=== PATIENT | female | born 1980 | race Caucasian/White ===

== ENCOUNTER 2017-11-17 13:21 | Emergency (ER) | payer BC ==
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
== END 2017-11-17 14:51 | disposition home or self-care (01) ==
LOC: ERS 13:21
DX: S06.0X0A Concussion without loss of consciousness, initial encounter (principal); F10.239 Alcohol dependence with withdrawal, unspecified; I10 Essential (primary) hypertension; F41.9 Anxiety disorder, unspecified; F32.9 Major depressive disorder, single episode, unspecified; F43.10 Post-traumatic stress disorder, unspecified; Z79.899 Other long term (current) drug therapy; V49.9XXA Car occupant (driver) (passenger) injured in unspecified traffic accident, initial encounter
CPT/HCPCS: 70450

== ENCOUNTER 2017-11-17 22:21 | Emergency (ER) | payer BC ==
[2017-11-17] MEDS ORDERED: Lorazepam 2 MG/ML VIAL ONE (22:38)
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
[2017-11-17 23:13] LABS: Bicarbonate (HCO3v) 19.9 mmol/L (1.0-85.0); CO2 Tension (PvCO2) 28.9 mmHg (41.0-51.0); Calcium, Ionized 1.01 mmol/L (1.12-1.32); Hemoglobin - Calc 13.1 g/dL (12.0-18.0); T. Carbon Dioxide 20.8 mmol/L (1.0-85.0); pH (Venous) 7.445 (7.35-7.45); vO2 Saturation-calc 95.9 % (94-98)
[2017-11-17] MEDS ORDERED: Magnesium 2 GM/NS 0.9% 100 ML 2 GM in Premix Bag 1 BAG IVPB SCH (23:15)
[2017-11-17] MEDS ORDERED: Multivitamins, Adult 10 ML, Thiamine HCl 100 MG, Folic Acid 1 MG in Dextrose 5 %-0.45 %... IV SCH (23:15)
[2017-11-17 23:18] LABS: ALT (SGPT) 32 U/L (8-55); AST (SGOT) 47 U/L (5-34); Albumin 4.5 g/dL (3.5-5.0); Alcohol 137 mg/dL (Less than 10); Alkaline Phosphatase 76 U/L (40-150); Anion Gap 21 mmol/L (10-20); BUN (Urea Nitrogen) 18 mg/dL (7.0-18.7); Bilirubin, Total 1.2 mg/dL (0.2-1.2); CK (CPK) 109 U/L (29-168); Calc. Creatinine Clearance 0 mL/min (70-130); Calcium 8.7 mg/dL (7.8-10.44); Carbon Dioxide 17 mmol/L (22-29); Chloride 100 mmol/L (98-107); Estimated GFR-MDRD 78; Globulin 2.8 g/dL (2.4-3.5); Glucose 78 mg/dL (70-105); Protein, Total 7.3 g/dL (6.0-8.3); Sodium 135 mmol/L (136-145)
[2017-11-17 23:22] LABS: CKMB 1.6 ng/mL (0-6.6); Troponin I Less than 0.010 ng/mL (< 0.028)
[2017-11-17 23:23] LABS: Potassium 2.9 mmol/L (3.5-5.1)
[2017-11-18 01:10] LABS: Bilirubin Negative (Negative); Blood, Urine Small (Negative); Glucose, Urine (Dipstick) Negative (Negative); Leukocyte Small (Negative); Nitrite Negative (Negative); Protein, Urine (Dipstick) 100 mg/dL (Neg-Trace); Urobilinogen 0.2 mg/dL (0.2-1.0)
[2017-11-18 01:13] LABS: Clarity Cloudy (Clear); Specific Gravity, Urine 1.028 (1.002-1.036)
[2017-11-18 01:14] LABS: Bacteria/HPF Rare-Few HPF (None Seen); Crystals/HPF None Seen HPF (Negative); Hyaline Casts/LPF NONE SEEN LPF (0-3 Hyaline); RBC/HPF 0-3 HPF (0-3); Renal Epithelial None Seen HPF (0-3); Transitional Epithelial NONE SEEN HPF (0-3); Yeast-All Forms None Seen HPF (None Seen)
[2017-11-18 01:15] LABS: Other Casts/LPF None Seen LPF (0-3 Hyaline); Other Microscopic Description Less than 2 mL rec'd; Pregnancy Test - Urine (BHCG) Negative (Negative); Pregu Control Background? CLEAR/WHITE (CLR/WHITE); Pregu Control Bar Appear? YES (CONTROL BAR); Specific Gravity 1.028 (1.002-1.036)
[2017-11-18 01:21] LABS: Amphetamine Detected (NotDetected); Barbiturates Screen Not Detected (NotDetected); Benzodiazepine Screen Not Detected (NotDetected); Cocaine Metabolite Screen Detected (NotDetected); Medtox Control Line Valid? VALID (VALID); Medtox Reader # READER 4; Methadone Not Detected (NotDetected); Methamphetamine Not Detected (NotDetected); Opiate Screen Not Detected (NotDetected); Oxycodone Screen Not Detected (NotDetected); Phencyclidine (PCP) Not Detected (NotDetected); THC/Cannabinoid Screen Not Detected (NotDetected); Tricyclic Screen Not Detected (NotDetected)
[2017-11-18] MEDS ORDERED: Lorazepam 2 MG/ML VIAL ONE (07:39)
== END 2017-11-18 09:35 | disposition home or self-care (01) ==
LOC: EEVIPCON 22:21 → ERS 22:21
DX: F10.10 Alcohol abuse, uncomplicated (principal); F41.9 Anxiety disorder, unspecified; F32.9 Major depressive disorder, single episode, unspecified; F43.10 Post-traumatic stress disorder, unspecified; I10 Essential (primary) hypertension; Z79.899 Other long term (current) drug therapy
CPT/HCPCS: 36415; 70450; 71045; 80053; 80306; 80307; 81003; 81015; 81025; 82140; 82330; 82553; 82803; 83735; 83930; 84443; 84484; 85014; 93005; 96361; 96365; 96375; 96376; J2060; J3411; J3475; J7042

== ENCOUNTER 2018-01-08 11:21 | Emergency (ER) | payer BC ==
[2018-01-08] MEDS ORDERED: Ondansetron HCl/PF 4 MG/2 ML Vial ONE ×2 (12:16→12:39)
[2018-01-08 12:49] LABS: #Basophils 0.1 thou/uL (0.0-0.2); #Lymphocytes 1.6 thou/uL (1.20-3.40); #Monocytes 0.4 thou/uL (0.11-0.59); %Basophils 1.6 % (0.0-1.0); %Eosinophils 0.7 % (0.0-10.0); %Lymphocytes 26.3 % (21.0-51.0); %Monocytes 6.5 % (0.0-10.0); %Neutrophils 64.9 % (42.0-75.0); Hemoglobin 15.1 g/dL (12.0-16.0); Mean Corpuscular HGB CONC 34.7 g/dL (32.0-36.0); Mean Corpuscular Hemoglobin 34.4 pg (27.0-31.0); Mean Corpuscular Volume 99.4 fL (78.0-98.0); Mean Platelet Volume 6.9 fL (7.4-10.4); Platelet Count 202 thou/uL (130-400); RBC Distribution Width 12.8 % (11.5-14.5); Red Blood Cell (RBC) Count 4.37 mill/uL (4.20-5.40); White Blood Cell (WBC) Count 6.2 thou/uL (4.8-10.8)
[2018-01-08 12:58] LABS: Bilirubin Negative (Negative); Blood, Urine Negative (Negative); Clarity CLOUDY (Clear); Glucose, Urine (Dipstick) Negative (Negative); Leukocyte Trace (Negative); Nitrite Negative (Negative); Protein, Urine (Dipstick) Negative (Neg-Trace); Specific Gravity, Urine 1.029 (1.002-1.036); Urobilinogen 0.2 mg/dL (0.2-1.0)
[2018-01-08 13:00] LABS: Bacteria/HPF 1+ HPF (None Seen); Pregnancy Test - Urine (BHCG) Negative (Negative); Pregu Control Background? CLEAR/WHITE (CLR/WHITE); Pregu Control Bar Appear? YES (CONTROL BAR); Specific Gravity 1.029 (1.002-1.036)
[2018-01-08 13:05] LABS: Pathc Cast-AUWi Flag 2.61 (0-2.49)
[2018-01-08 13:08] LABS: ALT (SGPT) 36 U/L (8-55); AST (SGOT) 105 U/L (5-34); Albumin 4.2 g/dL (3.5-5.0); Alkaline Phosphatase 85 U/L (40-150); Anion Gap 17 mmol/L (10-20); BUN (Urea Nitrogen) 9 mg/dL (7.0-18.7); Bilirubin, Total 0.5 mg/dL (0.2-1.2); Calc. Creatinine Clearance 0 mL/min (70-130); Calcium 8.9 mg/dL (7.8-10.44); Carbon Dioxide 24 mmol/L (22-29); Chloride 104 mmol/L (98-107); Estimated GFR-MDRD 90; Globulin 3.1 g/dL (2.4-3.5); Glucose 103 mg/dL (70-105); Potassium 3.3 mmol/L (3.5-5.1); Protein, Total 7.3 g/dL (6.0-8.3); Sodium 142 mmol/L (136-145)
[2018-01-08 13:12] LABS: RBC/HPF None Seen HPF (0-3)
[2018-01-08 13:13] LABS: Crystals/HPF None Seen HPF (Negative); Hyaline Casts/LPF 7-10 HYALINE CAST LPF (0-3 Hyaline); Other Casts/LPF None Seen LPF (0-3 Hyaline); Oval Fat Bodies/HPF None Seen HPF (None Seen); Renal Epithelial None Seen HPF (0-3); Transitional Epithelial NONE SEEN HPF (0-3); Trichomonas/HPF None Seen HPF (None Seen)
== END 2018-01-08 16:02 | disposition home or self-care (01) ==
LOC: ERS 11:21
DX: K62.3 Rectal prolapse (principal); N39.0 Urinary tract infection, site not specified; I10 Essential (primary) hypertension; F41.9 Anxiety disorder, unspecified; F32.9 Major depressive disorder, single episode, unspecified; F43.10 Post-traumatic stress disorder, unspecified; Z79.899 Other long term (current) drug therapy
CPT/HCPCS: 80053; 81003; 81015; 81025; 82274; 85025; 96361; 96374; J2405

== ENCOUNTER 2019-01-22 10:20 | Inpatient (IN) | payer BC, SELFPAY ==
[2019-01-22 11:23] LABS: #Basophils 0.1 thou/uL (0.0-0.2); #Eosinphils 0.1 thou/uL (0.0-0.7); #Lymphocytes 1.6 thou/uL (1.20-3.40); #Monocytes 1.5 thou/uL (0.11-0.59); #Neutrophils 11.8 thou/uL (1.40-6.50); %Basophils 0.6 % (0.0-1.0); %Eosinophils 0.5 % (0.0-10.0); %Lymphocytes 10.4 % (21.0-51.0); %Monocytes 9.7 % (0.0-10.0); %Neutrophils 78.9 % (42.0-75.0); Hemoglobin 12.9 g/dL (12.0-16.0); Mean Corpuscular HGB CONC 32.7 g/dL (32.0-36.0); Mean Corpuscular Hemoglobin 34.8 pg (27.0-31.0); Mean Platelet Volume 8.3 fL (7.4-10.4); Platelet Count 421 thou/uL (130-400); RBC Distribution Width 11.6 % (11.5-14.5); White Blood Cell (WBC) Count 14.9 thou/uL (4.8-10.8)
[2019-01-22] MEDS ORDERED: Morphine 4 MG/ML VIAL ONE ×2 (11:42→14:30)
[2019-01-22] MEDS ORDERED: Ondansetron PF 4 MG/2 ML Vial ONE ×2 (11:42→16:28)
[2019-01-22 11:44] LABS: ALT (SGPT) 28 U/L (8-55); AST (SGOT) 186 U/L (5-34); Albumin 2.7 g/dL (3.5-5.0); Alkaline Phosphatase 235 U/L (40-150); Anion Gap 14 mmol/L (10-20); BUN (Urea Nitrogen) Less than 4 mg/dL (7.0-18.7); Bilirubin, Total 4.6 mg/dL (0.2-1.2); Calc. Creatinine Clearance 0 mL/min (70-130); Calcium 7.6 mg/dL (7.8-10.44); Carbon Dioxide 27 mmol/L (22-29); Chloride 92 mmol/L (98-107); Estimated GFR-MDRD Greater than 90; Globulin 3.7 g/dL (2.4-3.5); Glucose 106 mg/dL (70-105); Protein, Total 6.4 g/dL (6.0-8.3)
[2019-01-22 11:50] LABS: Potassium 2.6 mmol/L (3.5-5.1); Sodium 130 mmol/L (136-145)
[2019-01-22 12:25] LABS: BHCG - Serum Negative (NEGATIVE); Pregs Control Background? CLEAR/WHITE (CLR/WHITE); Pregs Control Bar Appear? YES (CONTROL BAR)
--- NOTE | 2019-01-22 12:59 | CT ---
CT OF THE ABDOMEN AND PELVIS WITH IV CONTRAST INDICATION: Abdominal pain with diarrhea and dysuria for 2 weeks; history of antibiotic therapy for U TI with no relief COMPARISON: None FINDINGS: ABDOMEN: Lung bases: There is bibasilar atelectasis Liver: There is prominent heterogeneous density affecting the liver. The liver is enlarged measuring 22.3 cm. Gallbladder: Mildly distended Pancreas: Normal. Adrenal glands: Normal. Spleen: Normal. Kidneys: Normal. Retroperitoneum of the upper abdomen: No lymphadenopathy or free fluid is identified. Pelvis: Small and large bowel: There is wall thickening suggested involving the cecum and ascending colon. Th ere is chse-bo-eummizkd free fluid within the abdomen and pelvis. Bladder: Decompressed with a Lai catheter Rectal and perirectal soft tissues:Normal. Reproductive structures: Normal. Free fluid in pelvis: There is [id number] free fluid within the abdomen or pelvis. Lymphadenopathy pelvis: No lymphadenopathy is evident. Osseous structures: No acute osseous abnormality. No destructive osteolytic or osteoblastic lesion i s identified. IMPRESSION: 1. Prominent heterogeneity of the liver is suspicious for areas of focal fatty infiltration. There is prominent hepatomegaly. Recommend correlation with the patient's clinical history clinical exam for acute liver disease. 2. Wall thickening involving the cecum and ascending colon is suspicious for colitis of infectious or inflammatory etiology. With the history of antibiotics, further evaluation for C. difficile colitis may be helpful. 3. Bibasilar atelectasis 4. Junf-wf-auctzrdr free fluid within the abdomen and pelvis. This may be secondary to patient's live r disease.
[2019-01-22] MEDS ORDERED: ISOVUE-370 76%-LOCM 1 ML ONE (13:02)
[2019-01-22 13:07] LABS: Bilirubin Large (Negative); Blood, Urine Negative (Negative); Glucose, Urine (Dipstick) 100 mg/dL (Negative); Leukocyte Negative (Negative); Protein, Urine (Dipstick) 100 mg/dL (Neg-Trace)
[2019-01-22 13:09] LABS: Clarity Clear (Clear); Nitrite Unable to Interpret (Negative)
[2019-01-22] MEDS ORDERED: Lidocaine 1% w/Epinephrine 1:100K 20 ML VIAL ONE (13:09)
[2019-01-22 13:10] LABS: Bacteria/HPF None Seen HPF (None Seen); RBC/HPF 0-3 HPF (0-3); Squamous Epithelial 0-3 HPF (0-3)
[2019-01-22] MEDS ORDERED: cefTRIAXone\\ROCEPHIN 1 GM VIAL ONE (13:41)
[2019-01-22] MEDS ORDERED: Potassium Chloride 10 MEQ in Premix Bag 1 BAG IVPB SCH (14:00)
--- NOTE | 2019-01-22 14:18 | PDOC.FPRHP ---
- History of Present Illness Chief Complaint: Diarrhea, abdominal distention History of Present Illness: 38yo female presents to ED complaining of diarrhea, decreased urine output, and abdominal distention. Pt states that her diarrhea has been going on for 2 weeks and happening too many times per day to count and she has noticed decreased urine output to the point that she only pees once per day and it seems very concentrated. Pt states she was seen 1.5 weeks ago soon after developing these sx and was found to have a UTI and started on cipro. A few days later the pt's sx continued and she noted that she had a decreased appetite and was having nearly clear diarrhea. She was seen again due to increasing abdominal distention and started on flagyl. Pt came here today due to continuation of her sx. Pt denies any fever, chills, blood in stool, nausea, or vomiting. Pt originally denied alcohol use to the ED provider, however, after further discussion admitted to a 15 year history of alcohol abuse with the last year being sober. To FMR team pt adamantly refused any alcohol use. Initial workup in the ED was significant for a CT showing hepatomegaly with fatty infiltrate, mild-mod free fluid, and wall thickening of cecum and ascending colon. Labs showed leukocytosis, elevated bilirubin, AST, and alk phos. UA suggested dehydration. ED Course: Abd CT and labs concerning for acute vs chronic liver disease. Diagnostic paracentesis performed. 1g rocephin. 1L NS. 10meq potassium. - Allergies/Adverse Reactions Allergies Allergy/AdvReac Type Severity Reaction Status Date / Time No Known Drug Allergies Allergy Verified 01/22/19 17:03 - Home Medications Medication Instructions Recorded Confirmed Type No Known 01/22/19 01/22/19 History - History PMHx: HTN - controlled off Rx PSHx: None FHx: No significant hx Social: Denied alcohol to FMR team, reported 15 years - Review of Systems General: reports: weight/appetite/sleep changes (decreased appetite). denies: fever/chills Eyes: denies: vision changes, other ENT: denies: nasal congestion, rhinorrhea Respiratory: denies: cough, congestion, shortness of breath Cardiovascular: denies: chest pain, edema Gastrointestinal: reports: diarrhea, abdominal pain. denies: nausea, vomiting, GI bleeding Genitourinary: reports: other (oliguria). denies: incontinence, dysuria Skin: denies: rashes, lesions, jaundice Musculoskeletal: denies: pain, tenderness Neurological: denies: numbness, weakness - Vital signs BP: 120/89, Pulse: 105, Resp: 20, Temp: 97.7 (Oral), Pain: 2, O2 sat: 97 RA - Physical Exam Constitutional: NAD HEENT: normocephalic and atraumatic, EOMI, conjunctiva clear, no scleral icterus Neck: supple, FROM, no JVD Heart: RRR, normal S1/S2 Lungs: CTAB, no respiratory distress, good air movement -Abdomen: Diffusely tender with focal tenderness to RUQ, LUQ, and suprapubic region. + Fluid wave, Distended, mildly resonant to percussion Musculoskeletal: normal structure Neurological: no focal deficit, CN II-XII intact Skin: no rash/lesions, capillary refill <2 seconds, no jaundice Heme/Lymphatic: no unusual bruising or bleeding, no petechia -Psychiatric: Irritable mood FMR H&P: Results - Labs Result Diagrams: 01/23/19 04:20 01/23/19 04:20 Lab results: WBC 14.9 thou/uL (4.8-10.8) H 01/22/19 11:14 Hgb 12.9 g/dL (12.0-16.0) 01/22/19 11:14 Hct 39.3 % (36.0-47.0) 01/22/19 11:14 MCV 106.0 fL (78.0-98.0) H 01/22/19 11:14 Plt Count 421 thou/uL (130-400) H 01/22/19 11:14 Neutrophils % 78.9 % (42.0-75.0) H 01/22/19 11:14 Sodium 130 mmol/L (136-145) L 01/22/19 11:14 Potassium 2.6 mmol/L (3.5-5.1) L* 01/22/19 11:14 Chloride 92 mmol/L (98-107) L 01/22/19 11:14 Carbon Dioxide 27 mmol/L (22-29) 01/22/19 11:14 BUN Less than 4 mg/dL (7.0-18.7) L 01/22/19 11:14 Creatinine 0.68 mg/dL (0.6-1.1) 01/22/19 11:14 Glucose 106 mg/dL (70-105) H 01/22/19 11:14 Calcium 7.6 mg/dL (7.8-10.44) L 01/22/19 11:14 Total Bilirubin 4.6 mg/dL (0.2-1.2) H 01/22/19 11:14 AST 186 U/L (5-34) H 01/22/19 11:14 ALT 28 U/L (8-55) 01/22/19 11:14 Alkaline Phosphatase 235 U/L (40-150) H 01/22/19 11:14 Serum Total Protein 6.4 g/dL (6.0-8.3) 01/22/19 11:14 Albumin 2.7 g/dL (3.5-5.0) L 01/22/19 11:14 Lipase 13 U/L (8-78) 01/22/19 12:08 Urine Ketones 15 mg/dL (Negative) A 01/22/19 12:36 Urine Blood Negative (Negative) 01/22/19 12:36 Urine Nitrite Unable to Interpret (Negative) 01/22/19 12:36 Ur Leukocyte Esterase Negative (Negative) 01/22/19 12:36 Urine RBC 0-3 HPF (0-3) 01/22/19 12:36 Urine WBC 11-20 HPF (0-3) A 01/22/19 12:36 Ur Squamous Epith Cells 0-3 HPF (0-3) 01/22/19 12:36 Urine Bacteria None Seen HPF (None Seen) 01/22/19 12:36 - Radiology Interpretation CT scan - abdomen Status: image reviewed by me, report reviewed by me (Mild-mod free fluid, hepatomegaly, fatty liver infiltrates, mild gallbladder distention, cecum and acending colon wall thickening suggestive of colitis.) FMR H&P: A/P - Problem List (1) Alcoholic hepatitis Current Visit: Yes Status: Acute Code(s): K70.10 - ALCOHOLIC HEPATITIS WITHOUT ASCITES (2) Spontaneous bacterial peritonitis Current Visit: Yes Status: Acute Code(s): K65.2 - SPONTANEOUS BACTERIAL PERITONITIS (3) Infectious colitis Current Visit: Yes Status: Acute Code(s): A09 - INFECTIOUS GASTROENTERITIS AND COLITIS, UNSPECIFIED (4) Ascites Current Visit: Yes Status: Acute Code(s): R18.8 - OTHER ASCITES (5) Dehydration Current Visit: Yes Status: Acute Code(s): E86.0 - DEHYDRATION (6) Hypokalemia Current Visit: Yes Status: Acute Code(s): E87.6 - HYPOKALEMIA - Plan Infectious colitis 2 week hx of profuse diarrhea CT abd: cecum and ascending colon wall thickening indicating colitis, WBC 14.9 - stool studies: c. Diff, fecal lactoferrin, ova, parasites, culture - procal - flagyl, hepatic dosing, 250mg q8hr Dehydration Decreased urine output, UA findings consistent - LR @ 90 Suspect spontaneous bacterial peritonitis New onset ascites and leukocytosis - rocephin 2g daily - paracentesis, ascitic fluid studies pending Alcohlic Hepatitis most likely - vs steatosis vs steatohepatitis vs cirrhosis 15 year history of alcohol abuse, now [address]: Hepatomegaly, fatty infiltration of the liver Will assess for other possible causes of hepatitis - Hep A, B, C; HIV studies - RUQ US pending - Hepatic doppler - Stratify disease severity: coag studies, trend CMP - Child-Monsalve score: 11 = Class C (score only relevant if pt truly has cirrhosis) - GI was consulted by ED provider prior to admission: labs ordered for further workup of potential causes of CT and lab findings Hypokalemia Initially 2.6 in ED replace with 50 MEQ IVPB, 40 MEQ Oleksandr BMP scheduled two hours after infusion - Trend a.m. CMP - Mg and Phos ordered History of alcohol abuse - Alcohol <10 - ASE protocol ordered Code status: Full VTE ppx: SCD's' IVF: LR @ 90 Dispo: Admit to tele for hypokalemia w/ plan to transfer to medical upon resolution, cont assessment for etiology of CT/lab findings FMR H&P: Upper Level - Pertinent history 38 y/o F with no known PMHx presents to the ED complaining of abdominal pain, diarrhea, and decreased urine output. The patient reports that 2 weeks ago she began having profuse, non-bloody diarrhea. She reports that a few days later she began having decreased urine output and was treated by her PCP with Cipro and then later flagyl for presumptive UTI. Pt reports that she began developing diffuse abdominal pain that was worse in LUQ, RUQ, and suprapubic regions. She reports her episodes of diarrhea are too many to count to the point that it was just water. She has been drinking plenty of fluids, but has not been eating very much due to decreased appetite. She reports abdominal distension for the past 4-5 days. Denies any fevers or SOB. - Pertinent findings Vital signs: Temp 97.7, BP: 117/84, Pulse: 105, Resp: 18, O2 sat: 97 on Room Air PE: Gen - alert, oriented, agitated, no acute distress CV - tachycardic, regular rhythm, no murmurs Lungs - CTAB Abd - distended, TTP in RUQ, LUQ, and suprapubic region, tympanic to percussion , +Fluid wave Labs: WBC 14.9, Platelets 421, Na 130, K 2.6, Cl 92, CO2 27, Cr 0.68, AST 186, ALT 28, T. bili 4.6, Alk Phos 235 CT abd/pelvis: cecum and ascending colon wall thickening, abdominal free fluid, hepatomegaly, fatty infiltration of the liver, bibasilar atelectasis - Plan Date/Time: 01/22/19 1418 I, Nelida Caceres MD, PGY-3, have evaluated this patient and agree with findings/ plan as outlined by internal combustion engine assembler resident. Pertinent changes/additions are listed here. Acute Infectious Colitis Pt with colitis noted on CT and h/o severe diarrhea for the past 2 weeks. Elevated WBC 14.9. -Will check stool culture, E. coli, lactoferrin, c. diff -Will check procal -LR @ 75 as pt appears mildly dehydrated. s/p 1L NS in ED. Suspected Alcoholic Hepatitis Pt with signs of alcoholic hepatitis vs steatosis vs steatohepatitis. She has developed ascites, elevated LFT's. She denies alcohol use during my evaluation, however informed the ER physician of extensive alcohol abuse hx. CT showed hepatomegaly with fatty infiltration of the liver. -will get RUQ US to evaluate further -Will check coags -Hepatitis panel, HIV, RPR -GI was consulted by the ED nurse practitioner and has placed orders for other workup regarding possible causes of hepatitis. Ascites In the setting of abdominal pain, will r/o SBP. Paracentesis performed in ED. -f/u on ascitic fluid -will empirically start on rocephin 2g daily Hypokalemia K 2.6 in ED, was given 10mEq KCl by ED SALES PROFESSIONAL. -Will give another 40mEq IV and 40mEq PO -Will check magnesium and repeat potassium level this PM h/o alcohol abuse -Will check alcohol level -ASE protocol Leukocytosis Likely 2/2 colitis vs SBP -Rocephin -Monitor Admit to tele for hypokalemia, will transfer to medical once this is resolved Length of stay likely > 2 days Code status: Full VTE ppx: SCD's' Addendum - Attending - Attending Attestation Date/Time: 01/23/19 8260 I personally evaluated the patient and discussed the management with Dr. Mendiola last evening at time of admission. I agree with the History, Examination, Assessment and Plan documented above with any addition or exceptions noted below. Multiple possible causes for ascites. Empiric antibiotics for SBP and Colitis. ID workup initiated. Liver disease eval underway.
[2019-01-22 15:31] LABS: RBC Count-Automated (BF) 64 /cumm; WBC/Nucleated-Auto (BF) 85 uL
[2019-01-22 15:46] LABS: BF Color Yellow; Body Fluid Source Ascites Body Fluid; Clarity Hazy (Clear); Tube # EDTA
[2019-01-22 15:49] LABS: BF Segmented Neutrophils 4 %; Cell Count Non Hematic 69 %; Lymphocytes 27 %
[2019-01-22] MEDS ORDERED: Potassium Chloride 20 MEQ TAB PO SCH (15:53)
[2019-01-22] MEDS ORDERED: Ondansetron ODT 4 MG TAB PO PRN (15:53)
[2019-01-22] MEDS ORDERED: cefTRIAXone\\ROCEPHIN 1 GM in Sodium Chloride 0.9% 100 ML IVPB SCH (16:00)
[2019-01-22] MEDS ORDERED: Lactated Ringer's 1,000 ML IV SCH (16:00)
[2019-01-22] MEDS ORDERED: Potassium Chloride 40 MEQ in Sodium Chloride 0.9% 250 ML 250 ML IVPB SCH (16:15)
[2019-01-22 16:35] LABS: Acetaminophen Less than 6.0 mcg/mL (10.0-30.0); Alcohol Less than 10 mg/dL (Less than 10); Iron 68 ug/dL (50-170); Iron Binding Capacity, Total 101 mcg/dL (265-497)
[2019-01-22 16:57] LABS: HBSAg Index 0.14 S/CO (0-0.99); Hep A IgM AB Non-Reactive (NonReactive); Hep A IgM S/CO 0.16 S/CO (0-0.79); Hep B Surf Ag Non-Reactive S/CO (NonReactive); Hep C IgG Ab Non-Reactive (NonReactive); Hep C Index 0.15 S/CO (0-0.79); Hepatitis B Core IgM Abs Non-Reactive (NonReactive)
[2019-01-22 17:01] VITALS: BMI 25.2
--- NOTE | 2019-01-22 17:04 | ULT ---
RIGHT UPPER QUADRANT ULTRASOUND CLINICAL HISTORY: Abdominal pain with elevated LFTs. COMPARISON: CT abdomen and pelvis dated 01/22/2019. FINDINGS: Liver:There is prominent diffuse fatty infiltration of the liver with diminished through transmission . The liver is enlarged measuring 18.5 cm. Bile ducts: No intrahepatic or extrahepatic biliary dilation.; common bile duct: 0.58cm. Gallbladder: Mildly distended Young's sign:None Main portal vein:There is suggestion of hepatofugal flow within the main portal vein Pancreas: Visualized pancreas appears normal. Right kidney: No pelvicalyceal dilatation. Right kidney measures 11.6 x 4.4 x 6.3 cm. Additional findings: None. IMPRESSION: Prominent echogenicity with diminished through-transmission of the liver suspicious for diffuse fatty infiltration. There is prominent hepatomegaly. There is suggestion of hepatofugal flow within the main portal vein; however, the main portal vein is not well assessed. Recommend a dedicated hepatic duplex ultrasound examination to confirm patency and appropriate flow within the main portal vein as well as patency within the hepatic veins. On the CT examination there is suggestion of hypertrophy of the caudate lobe with some mass effect on the IVC as well as the hepatic veins. Acute Budd-Chiari syndrome is not entirely excluded. Mild dilatation of the gallbladder. Findings were called to Dr. Mendiola at 5:00 PM on January 22, 2019.
[2019-01-22 17:52] LABS: INR-International Normal Ratio 1.6; PTT 37.8 SEC (22.9-36.1); Prothrombin Time 19.1 SEC (12.0-14.7)
[2019-01-22 17:54] LABS: Hep B Surf AB Reactive (NonReactive)
[2019-01-22 18:06] LABS: Phosphorus 2.3 mg/dL (2.3-4.7)
[2019-01-22 18:09] LABS: HBSAB Concentration 2150.15 mIU/mL
[2019-01-22 18:33] LABS: Syphilis Antibody Nonreactive (Nonreactive); Syphilis Antibody Index 0.06 S/CO (<1.00 Non-Reactive)
[2019-01-22 18:47] LABS: HBSAg Index 0.15 S/CO (0-0.99); HIV (1/2) Antibody/Antigen Non-Reactive (NonReactive); HIV 1/2 INDEX 0.05 S/CO (<1.00); Hep B Surf Ag Non-Reactive S/CO (NonReactive); Hep C IgG Ab Non-Reactive (NonReactive); Hep C Index 0.15 S/CO (0-0.79)
[2019-01-22] MEDS: Ondansetron PF 4 MG/2 ML Vial IVP PRN (19:25)
[2019-01-22 19:27] LABS: HBSAB Concentration 2372.26 mIU/mL; Hep B Surf AB Reactive (NonReactive)
--- NOTE | 2019-01-22 19:51 | CON ---
DATE OF CONSULTATION: 01/22/2019 CHIEF COMPLAINT: Abdominal swelling. HISTORY OF PRESENT ILLNESS: Ms. Rossa is a 38-year-old woman, who complains of diarrhea for the last month to month and a half with 10+ stools per day. The stools have been brown to yellow watery stools without any blood in them. For the last 4 days, she has developed progressive abdominal distention and swelling. This is caused loss of appetite. She has had no vomiting. She has had no blood in the stool. She does have a prior history of rectal prolapse. She underwent colonoscopy by Dr. Daley one year ago in December 2017, which showed erythema in the rectum consistent with an area of prolapse intermittently with an otherwise normal colonoscopy. Biopsy from the area showed mucosal trauma again consistent with prolapse, but no other chronic inflammatory changes. After that, she did better for several months. Since her diarrhea has flared over the last month, the rectal prolapse has been bothering her again more frequently. She never did end up seeing General Surgery after the previous colonoscopy. PAST MEDICAL HISTORY: Alcohol abuse. PAST SURGICAL HISTORY: Breast augmentation. FAMILY HISTORY: Negative for GI malignancy. SOCIAL HISTORY: She drinks two glasses of wine once per week. She did drink a bottle of wine a day or more prior to few months ago. At which point, she reduced the intake level. She does not smoke. She denies any prior history of drug abuse. However, there is a urine toxicology screen that was positive for cocaine and amphetamine back in October of 2017. ALLERGIES: NO KNOWN DRUG ALLERGIES. MEDICATIONS: Prior to admission, none. She denies NSAID use. REVIEW OF SYSTEMS: Negative x10 systems reviewed except as stated in history of present illness. PHYSICAL EXAMINATION: VITAL SIGNS: She has been afebrile. Blood pressure is 120/84, pulse 97. GENERAL: She is in no acute distress. Alert and oriented x3. HEENT: Eyes have no scleral icterus. Oropharynx is clear without lesions. No cervical or supraclavicular lymphadenopathy. LUNGS: Clear to auscultation bilaterally. HEART: Regular rate and rhythm without murmur. ABDOMEN: Soft. She is distended. Her bowel sounds are present. EXTREMITIES: No lower extremity edema. LABORATORY DATA: White blood cell count 14.9, hemoglobin 12.9, platelets 421, MCV 106. Sodium 130, potassium 2.6, chloride 92, BUN 4, creatinine 0.68, bilirubin 4.6, AST 186, ALT 28, alkaline phosphatase 235, albumin 2.7, lipase 13. Serum test is negative. IMAGING DATA: CT scan of the abdomen and pelvis shows hepatomegaly with marked heterogeneity. There is also some thickening of the cecum and ascending colon. There is ascites around the liver and in the pelvis. IMPRESSION: 1. Abdominal distention and ascites. Paracentesis has been performed in the ER and fluid will be sent for cell count with differential to rule out spontaneous bacterial peritonitis. 2. Abnormal liver function tests with a mixed hepatocellular injury pattern and cholestatic pattern with AST significantly higher than the ALT, most consistent with acute alcoholic hepatitis. She states that she has markedly decreased her alcohol intake over the last few months; however, the accuracy of this is in doubt. I expect that the alcohol use has still been quite significant. She does not have obvious stigmata of cirrhosis at this point. 3. Diarrhea. She has thickening of the right colon by CT and severe diarrhea over the last month, which she reports this worsened year ago when she was having problems with the rectal prolapse. She has had recurrence of rectal prolapse symptoms. We will need to rule out an acute infectious gastroenteritis. She could have some significant protein loss with the diarrhea as well, worsening her albumin and precipitating the ascites. RECOMMENDATIONS: 1. Send the ascitic fluid for cell count with differential and culture. Also send the fluid for fluid albumin to calculate her serum-ascites albumin gradient. We would also check cytology at this point. 2. We will check an alcohol level and urine tox screen, but also send labs for other causes of liver disease including autoimmune markers and viral hepatitis and additional labs as ordered. 3. Stool studies for C diff culture, ova and parasite, and lactoferrin. 4. Precautions for delirium tremens. Job ID: [id number]
[2019-01-22 20:02] LABS: Amphetamine Not Detected (NotDetected); Barbiturates Screen Not Detected (NotDetected); Benzodiazepine Screen Not Detected (NotDetected); Cocaine Metabolite Screen Not Detected (NotDetected); Medtox Control Line Valid? VALID (VALID); Medtox Reader # READER 4; Methadone Not Detected (NotDetected); Methamphetamine Not Detected (NotDetected); Opiate Screen Detected (NotDetected); Oxycodone Screen Not Detected (NotDetected); Phencyclidine (PCP) Not Detected (NotDetected); THC/Cannabinoid Screen Not Detected (NotDetected); Tricyclic Screen Not Detected (NotDetected)
[2019-01-22] MEDS: traMADol HCl 50 MG TAB PO PRN (21:43)
[2019-01-22 22:46] LABS: Anion Gap 12 mmol/L (10-20); BUN (Urea Nitrogen) Less than 4 mg/dL (7.0-18.7); Calc. Creatinine Clearance 110 mL/min (70-130); Calcium 7.3 mg/dL (7.8-10.44); Carbon Dioxide 26 mmol/L (22-29); Chloride 97 mmol/L (98-107); Estimated GFR-MDRD Greater than 90; Glucose 130 mg/dL (70-105); Potassium 3.3 mmol/L (3.5-5.1); Sodium 132 mmol/L (136-145)
[2019-01-22] MEDS ORDERED: Magnesium 2 GM/50 ML 2 GM in Premix Bag 1 BAG IVPB SCH (23:30)
[2019-01-22] MEDS ORDERED: Potassium Chloride 20 MEQ in Premix Bag 1 BAG IVPB SCH (23:30)
--- NOTE | 2019-01-23 00:01 | ULT ---
HEPATIC DOPPLER: Comparison: 01-22-19 Correlation: 01-22-19 Technique: Grayscale, color flow, doppler imaging and spectral waveform analysis was performed of the hepatic vasculature. FINDINGS: Heterogeneous echotexture of the liver with a prominent caudate lobe. There is hepatomegaly, with the right hepatic lobe measuring 22 cm. Unremarkable gallbladder. Right kidney has a normal cortical echotexture. No hydronephrosis. Right ki dney measures 11.3 cm in maximal dimension. Spleen has a normal echotexture, measuring 8.9 cm in maximum dimension. Suboptimal evaluation of the common bile duct. Left kidney has a normal cortical echotexture. No hydronephrosis. Left kidney measures 11.0 cm in max imum dimension. Hepatic Doppler: Main portal vein appears to have hepatofugal flow. The left portal vein and right portal vein have pu lsatile flow. Middle hepatic vein, right hepatic vein, and left hepatic vein are decreased pulsatile flow. Hepatic artery is prominent. There is increased flow. Splenic vein and artery are patent. There appears to be narrowing of the intrahepatic IVC. IMPRESSION: 1. Hepatofugal flow in the main portal vein with pulsatile flow in the left and right portal vein. Pu lsatile flow in the left and right portal vein may be secondary to adjacent hepatic arterial flow. No te, there appears to be increased flow in the hepatic artery. The possibility of portal vein thrombos is cannot be excluded. There is decreased pulsatility in the hepatic veins. Correlate for Budd-Chiari . 2. Narrowing of the intrahepatic IVC. POS: [facility]
[2019-01-23] MEDS: metroNIDAZOLE 250 MG IVPB SCH ×4 (00:26→22:20)
[2019-01-23] MEDS: Lactated Ringer's 1,000 ML IV SCH ×2 (00:27→13:06)
[2019-01-23] MEDS: Ondansetron PF 4 MG/2 ML Vial IVP PRN ×4 (00:33→23:41)
[2019-01-23] MEDS: traMADol HCl 50 MG TAB PO PRN (03:03)
[2019-01-23 05:10] LABS: #Basophils 0.1 thou/uL (0.0-0.2); #Eosinphils 0.1 thou/uL (0.0-0.7); #Lymphocytes 1.3 thou/uL (1.20-3.40); #Monocytes 1.1 thou/uL (0.11-0.59); #Neutrophils 8.7 thou/uL (1.40-6.50); %Basophils 0.5 % (0.0-1.0); %Lymphocytes 11.8 % (21.0-51.0); %Monocytes 9.4 % (0.0-10.0); %Neutrophils 77.2 % (42.0-75.0); Hemoglobin 11.3 g/dL (12.0-16.0); Mean Corpuscular HGB CONC 33.7 g/dL (32.0-36.0); Mean Corpuscular Hemoglobin 36.5 pg (27.0-31.0); Mean Platelet Volume 8.6 fL (7.4-10.4); Platelet Count 329 thou/uL (130-400); RBC Distribution Width 11.5 % (11.5-14.5); Red Blood Cell (RBC) Count 3.11 mill/uL (4.20-5.40); White Blood Cell (WBC) Count 11.3 thou/uL (4.8-10.8)
[2019-01-23 05:47] LABS: ALT (SGPT) 23 U/L (8-55); AST (SGOT) 157 U/L (5-34); Albumin 2.2 g/dL (3.5-5.0); Alkaline Phosphatase 179 U/L (40-150); Anion Gap 10 mmol/L (10-20); BUN (Urea Nitrogen) Less than 4 mg/dL (7.0-18.7); Bilirubin, Total 3.5 mg/dL (0.2-1.2); Calc. Creatinine Clearance 126 mL/min (70-130); Calcium 7.1 mg/dL (7.8-10.44); Carbon Dioxide 24 mmol/L (22-29); Chloride 101 mmol/L (98-107); Estimated GFR-MDRD Greater than 90; Globulin 3.2 g/dL (2.4-3.5); Glucose 97 mg/dL (70-105); Potassium 3.5 mmol/L (3.5-5.1); Protein, Total 5.4 g/dL (6.0-8.3); Sodium 131 mmol/L (136-145)
--- NOTE | 2019-01-23 06:12 | PDOC.FM ---
- Subjective Subjective: Subjective improvement in abd distention. No n/v, fever, chills. No further diarrhea. Denies OCP use within the last few years. Denies personal or family hx of Chrons or ulcerative colitis. Denies personal or family hx of bleeding or clotting disorders. - Objective Vital Signs & Weight: Vital Signs (12 hours) Temp Pulse Resp BP Pulse Ox 01/23/19 04:00 98 F 95 20 104/74 92 L 01/22/19 21:52 98.4 F 88 17 119/69 98 Weight Weight 58.604 kg Result Diagrams: 01/23/19 04:20 01/23/19 04:20 Phys Exam - Physical Examination Constitutional: NAD HEENT: PERRLA, moist MMs, sclera anicteric Neck: no JVD, full ROM Respiratory: no wheezing, no rales, no rhonchi, clear to auscultation bilateral Cardiovascular: RRR, no significant murmur Distended, hypoactive bowel sounds, Diffusely tender, worse in RUQ, LUQ and supra pubic Musculoskeletal: no edema, pulses present Neurological: non-focal, normal sensation Psychiatric: normal affect, A&O x 3 Skin: no rash, cap refill <2 seconds Dx/Plan (1) Alcoholic hepatitis Code(s): K70.10 - ALCOHOLIC HEPATITIS WITHOUT ASCITES Status: Acute (2) Spontaneous bacterial peritonitis Code(s): K65.2 - SPONTANEOUS BACTERIAL PERITONITIS Status: Acute (3) Infectious colitis Code(s): A09 - INFECTIOUS GASTROENTERITIS AND COLITIS, UNSPECIFIED Status: Acute (4) Ascites Code(s): R18.8 - OTHER ASCITES Status: Acute (5) Dehydration Code(s): E86.0 - DEHYDRATION Status: Acute (6) Hypokalemia Code(s): E87.6 - HYPOKALEMIA Status: Acute - Plan Plan: Infectious colitis vs less likely IBD 2 week hx of profuse diarrhea, Hx of prev diarrhea evaluated w/ colonoscopy [address] Daley, showed erythema of the rectum consistent w/ pt's hx of rectal prolapse, otherwise unremarkable CT abd: cecum and ascending colon wall thickening indicating colitis, WBC 14.9 - stool studies: c. Diff, fecal lactoferrin, ova, parasites, culture pending - procal 0.21 - flagyl, hepatic dosing, 250mg q8hr - W/ pt's current evaluation of possible Budd-Chiari may require lower endoscopy to evaluate for IBD as a cause considering pts hx of diarrhea Dehydration Decreased urine output, UA findings consistent - LR @ 90 Ascites New onset ascites and leukocytosis - rocephin 2g daily empirically for Spontaneous bacterial peritonitis coverage - paracentesis, ascitic fluid studies - [id number] protein: 6.4, concerning for increased portal vein pressure - WBC 84, unlikely to be SBP - ascites albumin level pending Alcohlic Hepatitis most likely - vs steatosis vs steatohepatitis vs cirrhosis vs Budd-Chiari 15 year history of alcohol abuse, now [address]: Hepatomegaly, fatty infiltration of the liver Will assess for other possible causes of hepatitis - Hep A, B, C; HIV studies - negative - RUQ US: prominent echogenicity with diminished through-transmission of liver suspicious for diffuse fatty infiltration. prominent hepatomegaly. suggestion of hepatofugal flow within main portal vein - however main portal vein not well assessed. Rec hepatic duplex US. - Hepatic doppler: hepatofugal flow in main portal vein, pulsatile flow in left and right portal veins - possibility of portal vein thrombosis cannot be excluded, narrowing of IVC - correlate for Budd-Chiari - Risk stratifying pt for possible Budd-Chiari: pro coag studies, CPR/ESR, AFP - If dx is confirmed and pt is to be anticoagulated may require r/o of high risk varices prior - Stratify disease severity: coag studies, trend CMP - Child-Monsalve score: 11 = Class C (score only relevant if pt truly has cirrhosis) - GI was consulted by ED provider prior to admission: labs ordered for further workup of potential causes of CT and lab findings Hypokalemia Initially 2.6 in ED replace with 50 MEQ IVPB, 40 MEQ PO BMP scheduled two hours after infusion - Trend a.m. CMPs - potassium: 3.5 - Mg low, replaced History of alcohol abuse - Alcohol <10 - ASE protocol ordered Code status: Full VTE ppx: SCD's' IVF: LR @ 90 Dispo: Admit to tele for hypokalemia w/ plan to transfer to medical upon resolution, cont assessment for etiology of CT/lab findings Addendum - Attending - Attending Attestation Date/Time: 01/23/19 1793 I personally evaluated the patient and discussed the management with Dr. Mendiola. I agree with the History, Examination, Assessment and Plan documented above with any addition or exceptions noted below. Patient here for chronic abdominal pain and self reported diarrhea that has not occurred since she has been admitted. Her CT shows evidence of possible colitis , so she continues on Rocephin and Flagy with stool studies pending. It also appears that she may have alcoholic hepatitis with near cirrhosis. GI is on board. She had paracentesis performed that is not consistent with SBP. She will undergo further imaging today as there is a potential for her to have Budd- Chiari syndrome though her labs do not look as bad as I would expect in that case. Further mgmt per that imaging result and lab results.
[2019-01-23 09:34] LABS: INR-International Normal Ratio 1.6; PTT 39.8 SEC (22.9-36.1); Prothrombin Time 19.2 SEC (12.0-14.7)
[2019-01-23 09:35] LABS: D-Dimer Test 2.89 *mcg/mL (0.27-0.43)
[2019-01-23 11:21] LABS: Factor VIII Test 490.6 % ACTIVE (56-157)
[2019-01-23 11:48] LABS: Thrombin Time 22.1 secs (14.3-20.0)
[2019-01-23] MEDS: Morphine 2 MG/ML SYRINGE SLOW IVP PRN ×2 (11:50→18:08)
[2019-01-23 12:21] LABS: PT - Undiluted 19.2 SEC (12.0-14.7); PTT - Undiluted 39.8 SEC (22.9-36.1); PTT 1:1 Mix 30.7 SEC
[2019-01-23 14:28] LABS: PT 1:1 37C-90 min. Incubation 14.6 SEC; PTT 1:1 37C/90 MIN Incubation 31.8 SEC
[2019-01-23 15:55] LABS: HEX PHOS LA Tube 1 60.9 SEC; HEX PHOS LA Tube 2 51.3 SEC; Hexagonal Phospholipid Neut 9.3 SEC (0-8.0)
[2019-01-23] MEDS ORDERED: cefTRIAXone\\ROCEPHIN 2 GM in Sodium Chloride 0.9% 100 ML IVPB SCH (16:00)
--- NOTE | 2019-01-23 18:20 | PRG ---
DATE OF SERVICE: 01/23/2019 SUBJECTIVE: Ms. Rosas has no acute complaints today. She still has the pressure-type abdominal discomfort from abdominal distention, but no nausea or vomiting. She has had no further diarrhea since she has been admitted to the hospital and has been, therefore, unable to produce stool samples. SUBJECTIVE: VITAL SIGNS: Temperature 99.4, pulse 92, and blood pressure 114/56. GENERAL: She is in no acute distress. Alert and oriented x3. HEENT: Eyes have no scleral icterus. Oropharynx is clear without lesions. No cervical or supraclavicular lymphadenopathy. LUNGS: Clear to auscultation bilaterally. HEART: Regular rate and rhythm without murmur. ABDOMEN: Soft. She has mild diffuse tenderness and slight distention, but no guarding. Bowel sounds are present. EXTREMITIES: No lower extremity edema. LABORATORY DATA: Creatinine 0.55, sodium is 131, bilirubin 3.5, down from 4.6 yesterday. AST 157, ALT 23, alkaline phosphatase 179, albumin 2.2, alpha fetoprotein is 7.2. Ceruloplasmin 26.3. Iron 68, TIBC 101. Hepatitis A antibody is positive. Hepatitis B surface antibody is positive. Hepatitis B surface antigen is negative. Hepatitis C antibody is negative. IMPRESSION: 1. Acute alcoholic hepatitis. I have sent additional blood work looking for other causes of liver disease. Her iron saturation is elevated, and therefore, check a ferritin level. We will also check hemochromatosis gene. Other labs are currently pending. 2. Question of diminished flow through liver by Doppler ultrasound. The CT scan shows appropriate opacification of the portal vein without evidence of thrombosis of the portal vein or hepatic vein. 3. Diarrhea with thickening of the right colon by CT scan. Her diarrhea stopped since she was admitted. The thickening of the right colon might just be from portal hypertension due to the severe edema of the liver noted again by CT and ultrasound. 4. Ascites. Overall, she does not have a large amount of ascites, but she is very thin and symptomatic from it. The fluid is negative for spontaneous bacterial peritonitis. RECOMMENDATIONS: 1. Continue follow trend of her liver tests. 2. Complete alcohol cessation. 3. Monitor for delirium tremens. 4. Thiamine, multivitamin, folate supplementation. 5. She should be able to stop the antibiotics from my perspective. 6. Await extensive lab work already ordered. 7. Low-salt diet. Job ID: [id number]
[2019-01-23] MEDS: Multivitamins, Adult 10 ML, Folic Acid 1 MG, Thiamine HCl 100 MG in Dextrose 5 %-0.45 %... IV SCH (20:14)
[2019-01-24] MEDS: Morphine 2 MG/ML SYRINGE SLOW IVP PRN ×4 (00:12→18:01)
[2019-01-24] MEDS: Lactated Ringer's 1,000 ML IV SCH ×2 (01:27→10:30)
[2019-01-24 05:28] LABS: #Basophils 0.1 thou/uL (0.0-0.2); #Eosinphils 0.1 thou/uL (0.0-0.7); #Lymphocytes 1.5 thou/uL (1.20-3.40); #Monocytes 1.1 thou/uL (0.11-0.59); #Neutrophils 8.2 thou/uL (1.40-6.50); %Basophils 0.9 % (0.0-1.0); %Eosinophils 1.3 % (0.0-10.0); %Lymphocytes 13.5 % (21.0-51.0); %Monocytes 9.8 % (0.0-10.0); %Neutrophils 74.5 % (42.0-75.0); Hemoglobin 11.3 g/dL (12.0-16.0); Mean Corpuscular Hemoglobin 35.7 pg (27.0-31.0); Mean Platelet Volume 8.3 fL (7.4-10.4); Platelet Count 319 thou/uL (130-400); RBC Distribution Width 11.4 % (11.5-14.5); Red Blood Cell (RBC) Count 3.17 mill/uL (4.20-5.40)
--- NOTE | 2019-01-24 06:02 | PDOC.FM ---
- Subjective Subjective: Pt states that after her fluids were increased last night she had a lot of urine output and has continued to do so since removal of the red. Complains of continued abdominal discomfort. No BM yet. - Objective Vital Signs & Weight: Vital Signs (12 hours) Temp Pulse Resp BP Pulse Ox 01/24/19 03:44 99.4 F 101 H 20 103/72 96 01/23/19 20:00 97.2 F L 87 17 125/71 96 01/23/19 19:55 96 Weight Admit Weight 58.604 kg Weight 58.604 kg I&O: 01/22/19 01/23/19 01/24/19 06:59 06:59 06:59 Intake Total 1520 1770 Output Total 450 100 Balance 1070 1670 Result Diagrams: 01/24/19 05:19 01/24/19 10:26 Phys Exam - Physical Examination Constitutional: NAD HEENT: moist MMs Neck: supple, full ROM Respiratory: no wheezing, no rales, no rhonchi, clear to auscultation bilateral Cardiovascular: RRR, no significant murmur Gastrointestinal: soft Distended, tender in bilat upper quadrants Musculoskeletal: no edema, pulses present Neurological: non-focal, moves all 4 limbs Psychiatric: normal affect, A&O x 3 Skin: no rash, cap refill <2 seconds Dx/Plan (1) Alcoholic hepatitis Code(s): K70.10 - ALCOHOLIC HEPATITIS WITHOUT ASCITES Status: Acute Qualifiers: Ascites presence: with ascites Qualified Code(s): K70.11 - Alcoholic hepatitis with ascites (2) Ascites Code(s): R18.8 - OTHER ASCITES Status: Acute (3) Dehydration Code(s): E86.0 - DEHYDRATION Status: Acute (4) Hypokalemia Code(s): E87.6 - HYPOKALEMIA Status: Acute (5) Colitis Code(s): K52.9 - NONINFECTIVE GASTROENTERITIS AND COLITIS, UNSPECIFIED Status : Acute - Plan Plan: Alcohlic Hepatitis most likely - vs steatosis vs steatohepatitis vs cirrhosis 15 year history of alcohol abuse, now 1 year of regular alcohol consumption within recommended limits CT: Hepatomegaly, fatty infiltration of the liver Will assess for other possible causes of hepatitis - Hep A, B, C; HIV studies - negative - Hepatic vascular flow abnormalities seen on RUQ US and Hepatic Doppler concerning for Budd-Chiari - Discussed findings with both cardiology and gastro together - consensus was reached that the hepatic vein is in fact patent - Flow abnormalities seen on imaging is likely 2/2 to hepatomegaly w/ intrahepatic compression of the IVC - [place] pt's imaging findings were consistent w/ acute hepatitis with minimal indications for chronic disease, although could not further characterize - Stratify disease severity: coag studies, trend CMP - Child-Monsalve score: 11 = Class C (score only relevant if pt truly has cirrhosis) - GI was consulted by ED provider prior to admission: labs ordered for further workup of potential causes of CT and lab findings, further discussed as above - Pending send out labs - Will defer decision for biopsy to Dr. Fu Infectious colitis vs Portal hypertension causing colonic edema vs less likely IBD 2 week hx of profuse diarrhea, Hx of prev diarrhea evaluated w/ colonoscopy [address] Daley, showed erythema of the rectum consistent w/ pt's hx of rectal prolapse, otherwise unremarkable CT abd: cecum and ascending colon wall thickening indicating colitis, WBC 14.9 - stool studies: c. Diff, fecal lactoferrin, ova, parasites, culture pending ( pt has yet to give stool sample) - procal 0.21 - flagyl, hepatic dosing, 250mg q8hr; rocephin 2g daily Dehydration Decreased urine output, UA findings consistent - LR @ 90 Ascites New onset ascites and leukocytosis - rocephin 2g daily empirically for Spontaneous bacterial peritonitis coverage - paracentesis, ascitic fluid studies - prelim findings suggestive of portal hypertension - WBC 84, unlikely to be SBP - ascites albumin level pending Hypokalemia Initially 2.6 in ED replace with 50 MEQ IVPB, 40 MEQ PO BMP scheduled two hours after infusion - Trend a.m. CMPs - potassium: 3.5 - Mg low, replaced History of alcohol abuse - Alcohol <10 - ASE protocol ordered Code status: Full VTE ppx: SCD's' IVF: LR @ 90 Dispo: Inpt medicine, cont assessment for etiology of acute hepatitis. Pt remains stable with symptomatic improvement. Will continue to monitor for now. Will make sure she is tolerating PO and w/ stable labs prior to DC. Likely with require further workup on outpt basis. Expect DC within 1-3 days. Addendum - Attending - Attending Attestation Date/Time: 01/24/19 0748 I personally evaluated the patient and discussed the management with Dr. Mendiola. I agree with the History, Examination, Assessment and Plan documented above with any addition or exceptions noted below. Patient here for acute alcoholic hepatitis as well as colits. She has not had BMs, abx stopped as this likely not infectious colitis. She continues to have pain. GI on board. Extensive liver workup in progress. Sodium downtrending, will work that up.
[2019-01-24] MEDS: Ondansetron PF 4 MG/2 ML Vial IVP PRN ×3 (06:09→18:01)
[2019-01-24] MEDS: metroNIDAZOLE 250 MG IVPB SCH (06:13)
[2019-01-24 06:54] LABS: ALT (SGPT) 23 U/L (8-55); AST (SGOT) 168 U/L (5-34); Albumin 2.1 g/dL (3.5-5.0); Alkaline Phosphatase 185 U/L (40-110); Anion Gap 10 mmol/L (10-20); BUN (Urea Nitrogen) Less than 4 mg/dL (7.0-18.7); Calc. Creatinine Clearance 133 mL/min (70-130); Calcium 7.2 mg/dL (7.8-10.44); Carbon Dioxide 22 mmol/L (22-29); Chloride 97 mmol/L (98-107); Estimated GFR-MDRD Greater than 90; Globulin 3.2 g/dL (2.4-3.5); Glucose 96 mg/dL (70-105); Magnesium 1.8 mg/dL (1.6-2.6); Potassium 3.2 mmol/L (3.5-5.1); Protein, Total 5.3 g/dL (6.0-8.3); Sodium 126 mmol/L (136-145)
[2019-01-24] MEDS ORDERED: Potassium Chloride 20 MEQ TAB PO SCH (09:15)
[2019-01-24 11:07] LABS: Anion Gap 9 mmol/L (10-20); BUN (Urea Nitrogen) Less than 4 mg/dL (7.0-18.7); Calc. Creatinine Clearance 128 mL/min (70-130); Calcium 7.4 mg/dL (7.8-10.44); Carbon Dioxide 24 mmol/L (22-29); Chloride 98 mmol/L (98-107); Estimated GFR-MDRD Greater than 90; Glucose 119 mg/dL (70-105); Potassium 3.4 mmol/L (3.5-5.1); Sodium 128 mmol/L (136-145)
[2019-01-24 14:10] LABS: Smooth Muscle Total ABS 9 Units (0-19)
[2019-01-24 15:10] LABS: Alpha-1-Antitrypsin 175 mg/dL (90-200)
[2019-01-24 17:36] LABS: ANA Symphony (Qualitative) Negative (Negative); ANA Symphony (Quantitative) 0.5 Ratio (< 0.7 Negative); EliA Vaculitis New Method **** NEW METHOD ****; Mitochondrial Ab 1.7 U/mL (<4 Negative); dsDNA IgG Antibody 1.3 IU/mL (<10 Negative)
[2019-01-24] MEDS: Multivitamins, Adult 10 ML, Folic Acid 1 MG, Thiamine HCl 100 MG in Dextrose 5 %-0.45 %... IV SCH (18:01)
--- NOTE | 2019-01-24 18:06 | PRG ---
DATE OF SERVICE: 01/24/2019 SUBJECTIVE: Ms. Rosas is feeling better today. She is tolerating a solid diet. She has no nausea or vomiting. She has had no diarrhea since hospitalization. She still has abdominal distention type pain more so in the upper abdomen. OBJECTIVE: VITAL SIGNS: Temperature 99.2, pulse 102, blood pressure 109/69. GENERAL: She is in no acute distress. She is alert and oriented x3. LUNGS: Clear to auscultation bilaterally. HEART: Regular rate and rhythm without murmur. ABDOMEN: Soft, distended. Bowel sounds are present. EXTREMITIES: No lower extremity edema. IMPRESSION: 1. Acute alcoholic hepatitis. Her bilirubin is trending down. Her mental status is normal. Her INR is stable at 1.6. She has immunity to hepatitis A and hepatitis B. Smooth muscle antibody is negative. Iron saturation is mildly elevated. Other labs are pending. 2. Ascites. The volume of ascites is [id number] overall. She has a very distended edematous liver. Most of her discomfort is more in the upper abdomen or over her liver. Discomfort might be secondary to a stretch of Danni capsule around the liver due to the acute inflammation and distention of the liver capsule rather than just from the ascites. From an ascites standpoint, she will need to be on a low-salt diet. She was more dehydrated this morning and feels better after getting some fluids. I will hold off starting diuretics at this point. She will need to maintain complete alcohol abstinence, and if the ascites worsens, we might ultimately end up having to start spironolactone and furosemide. For now, we will lay off this. 3. Question of decreased blood flow through the liver by ultrasound Doppler. CT shows appropriate opacification of the portal system and hepatic veins. She does not have obvious Budd-Chiari syndrome. RECOMMENDATIONS: 1. Low-salt diet. 2. Alcohol abstinence. 3. If she continues to do well tomorrow, then she can likely discharge home tomorrow. Follow up in the office in a couple of weeks. Job ID: [id number]
[2019-01-24 18:27] LABS: Cardiolipin IgA Ab 7.9 APL-U/mL (<14 Negative); Cardiolipin IgG Ab 3.4 GPL-U/mL (<10 Negative); Cardiolipin IgM Ab 7.5 MPL-U/mL (<10 Negative); EliA APS New Method **** NEW METHOD ****
[2019-01-25] MEDS: Morphine 2 MG/ML SYRINGE SLOW IVP PRN ×4 (00:02→14:31)
[2019-01-25] MEDS: Ondansetron PF 4 MG/2 ML Vial IVP PRN ×3 (00:05→14:33)
[2019-01-25] MEDS ORDERED: Methocarbamol 500 MG TAB PO SCH (02:30)
--- NOTE | 2019-01-25 06:14 | PDOC.FM ---
- Subjective Subjective: Pt's main concern this morning is her abdominal pain. States that her current pain management is not adequate. Pt denies any other sx. States she has been urinating normally. - Objective Vital Signs & Weight: Vital Signs (12 hours) Temp Pulse Resp BP Pulse Ox 01/25/19 04:00 98.9 F 92 18 108/75 94 L 01/24/19 23:37 98.6 F 102 H 21 H 112/76 95 01/24/19 18:57 97.7 F 105 H 16 108/71 97 Weight Admit Weight 58.604 kg Weight 58.604 kg I&O: 01/23/19 01/24/19 01/25/19 06:59 06:59 06:59 Intake Total 1520 2250 930 Output Total 365 663 9839 Balance 1070 1350 -470 Result Diagrams: 01/25/19 06:12 01/25/19 08:16 Phys Exam - Physical Examination Mild distress 2/2 abd pain HEENT: moist MMs, sclera anicteric Neck: full ROM Respiratory: clear to auscultation bilateral No reps distress Cardiovascular: RRR, no significant murmur Distended, resonant to perucssion, LUQ tenderness Musculoskeletal: no edema, pulses present Neurological: non-focal Psychiatric: normal affect, A&O x 3 Skin: no rash, cap refill <2 seconds Deviation from normal: No jaundice Dx/Plan (1) Alcoholic hepatitis Code(s): K70.10 - ALCOHOLIC HEPATITIS WITHOUT ASCITES Status: Acute Qualifiers: Ascites presence: with ascites Qualified Code(s): K70.11 - Alcoholic hepatitis with ascites (2) Ascites Code(s): R18.8 - OTHER ASCITES Status: Acute (3) Dehydration Code(s): E86.0 - DEHYDRATION Status: Acute (4) Hypokalemia Code(s): E87.6 - HYPOKALEMIA Status: Acute (5) Colitis Code(s): K52.9 - NONINFECTIVE GASTROENTERITIS AND COLITIS, UNSPECIFIED Status : Acute - Plan Plan: Alcohlic Hepatitis most likely - vs steatosis vs steatohepatitis vs cirrhosis 15 year history of alcohol abuse, now 1 year of regular alcohol consumption within recommended limits CT: Hepatomegaly, fatty infiltration of the liver Will assess for other possible causes of hepatitis - Hep A, B, C; HIV studies - negative - Hepatic vascular flow abnormalities seen on RUQ US and Hepatic Doppler concerning for Budd-Chiari - Discussed findings with both cardiology and gastro together - consensus was reached that the hepatic vein is in fact patent - Flow abnormalities seen on imaging is likely 2/2 to hepatomegaly w/ intrahepatic compression of the IVC - [place] pt's imaging findings were consistent w/ acute hepatitis with minimal indications for chronic disease, although could not further characterize - Stratify disease severity: coag studies, trend CMP - Child-Monsalve score: 11 = Class C (score only relevant if pt truly has cirrhosis) - GI was consulted by ED provider prior to admission: labs ordered for further workup of potential causes of CT and lab findings, further discussed as above - Pending send out labs - Suggests outpt follow up if pt continues to remain stable - Pt complaining of abdominal pain, Tank feels this is 2/2 stretc of Danni's capsule - Will require conversion to oral pain rx prior to dc Portal hypertension causing colonic edema vs less likely Infectious colitis vs IBD 2 week hx of profuse diarrhea, Hx of prev diarrhea evaluated w/ colonoscopy [address] Daley, showed erythema of the rectum consistent w/ pt's hx of rectal prolapse, otherwise unremarkable CT abd: cecum and ascending colon wall thickening indicating colitis - felt to be 2/2 to portal hypertension w/ subsequent edema - stool studies: c. Diff, fecal lactoferrin, ova, parasites, culture pending ( pt has yet to give stool sample) - procal 0.21 - flagyl and rocephin stopped yesterday Dehydration Decreased urine output, UA findings consistent - LR @ 90 Ascites New onset ascites and leukocytosis - rocephin 2g daily empirically for Spontaneous bacterial peritonitis coverage - paracentesis, ascitic fluid studies - prelim findings suggestive of portal hypertension - WBC 84, unlikely to be SBP - ascites albumin level pending Hypokalemia Initially 2.6 in ED replace with 50 MEQ IVPB, 40 MEQ PO BMP scheduled two hours after infusion - Trend a.m. CMPs - potassium: 3.5 - Mg low, replaced History of alcohol abuse - Alcohol <10 - ASE protocol ordered Code status: Full VTE ppx: SCD's' IVF: LR @ 90 Dispo: Inpt medicine, cont assessment for etiology of acute hepatitis. Pt remains stable with symptomatic improvement. Will continue to monitor for now. Will make sure she is tolerating PO and w/ stable labs prior to DC. Likely with require further workup on outpt basis. Expect DC within 1-2 days. Addendum - Attending - Attending Attestation Date/Time: 01/25/19 5627 I personally evaluated the patient and discussed the management with Dr. Mendiola. I agree with the History, Examination, Assessment and Plan documented above with any addition or exceptions noted below. Patient stable. Tolerating diet. Awaiting further GI recs but likely stable for discharge later today.
[2019-01-25] MEDS ORDERED: Potassium Chloride 20 MEQ TAB PO SCH (06:30)
[2019-01-25 06:52] LABS: #Basophils 0.1 thou/uL (0.0-0.2); #Eosinphils 0.1 thou/uL (0.0-0.7); #Monocytes 1.1 thou/uL (0.11-0.59); #Neutrophils 9.8 thou/uL (1.40-6.50); %Basophils 0.4 % (0.0-1.0); %Eosinophils 0.4 % (0.0-10.0); %Lymphocytes 15.4 % (21.0-51.0); %Monocytes 8.4 % (0.0-10.0); %Neutrophils 75.4 % (42.0-75.0); Hemoglobin 12.3 g/dL (12.0-16.0); Mean Corpuscular HGB CONC 33.2 g/dL (32.0-36.0); Mean Corpuscular Hemoglobin 35.7 pg (27.0-31.0); Mean Platelet Volume 9.8 fL (7.4-10.4); Platelet Count 267 thou/uL (130-400); RBC Distribution Width 12.3 % (11.5-14.5); Red Blood Cell (RBC) Count 3.45 mill/uL (4.20-5.40); White Blood Cell (WBC) Count 12.9 thou/uL (4.8-10.8)
[2019-01-25 08:01] VITALS: BP 110/78
[2019-01-25 09:10] LABS: Albumin 2.5 g/dL (3.5-5.0)
[2019-01-25 09:11] LABS: Chloride 97 mmol/L (98-107); Potassium 4.2 mmol/L (3.5-5.1); Sodium 129 mmol/L (136-145)
[2019-01-25 09:12] LABS: Calcium 7.9 mg/dL (7.8-10.44); Glucose 105 mg/dL (70-105)
[2019-01-25 09:13] LABS: Globulin 3.9 g/dL (2.4-3.5); Protein, Total 6.4 g/dL (6.0-8.3)
[2019-01-25 09:14] LABS: Anion Gap 10 mmol/L (10-20); Bilirubin, Total 4.4 mg/dL (0.2-1.2); Carbon Dioxide 26 mmol/L (22-29)
[2019-01-25 09:15] LABS: Alkaline Phosphatase 218 U/L (40-110)
[2019-01-25 09:16] LABS: Calc. Creatinine Clearance 117 mL/min (70-130); Estimated GFR-MDRD Greater than 90
[2019-01-25 09:17] LABS: BUN (Urea Nitrogen) Less than 4 mg/dL (7.0-18.7)
[2019-01-25 09:18] LABS: ALT (SGPT) 29 U/L (8-55); AST (SGOT) 224 U/L (5-34)
[2019-01-25 11:50] VITALS: TEMP 99
[2019-01-25] MEDS: Gabapentin 100 MG CAP PO SCH ×2 (14:33→14:37)
--- NOTE | 2019-01-26 11:29 | DIS ---
DATE OF ADMISSION: 01/22/2019 DATE OF DISCHARGE: 01/25/2019 ADMITTING ATTENDING: Gilmar Russ MD. CONSULTS: Gastroenterology, Dr. Too Fu. PROCEDURES: None. PRIMARY DIAGNOSES: Acute alcoholic hepatitis, ascites, alcohol abuse. SECONDARY DIAGNOSES: 1. Dehydration. 2. Hypokalemia. DISCHARGE MEDICATIONS: 1. Gabapentin 100 mg t.i.d. 2. Ibuprofen 400 mg p.o. t.i.d. HISTORY OF PRESENT ILLNESS/HOSPITAL COURSE: The patient is a 38-year-old female who presented to the ED complaining of 2 weeks of diarrhea, abdominal pain, decreased urine output. The patient also notes that over the past 4 days prior to admission, she noticed increased abdominal distention. Patient states that her diarrhea has remained constant and occurs too many times per day to count. She states that she was seen 1.5 weeks ago and diagnosed with a urinary tract infection and started on ciprofloxacin. A few days later, she returned for evaluation and was placed on Flagyl due to her diarrhea. She presents to the ED due to concern over her increasing abdominal distention. ED workup included an abdominal CT and labs concerning for acute versus chronic liver disease. Diagnostic paracentesis was performed and patient received 1 g of Rocephin, 1 L of normal saline and [address] Too Fu gastroenterology was also consulted by the ED staff prior to her admission. The patient's abdominal CT was read as prominent heterogeneity of the liver that is suspicious for areas of focal fatty infiltration, prominent hepatomegaly. Wall thickening involving the cecum and ascending colon, colon that is suspicions for colitis, infectious versus inflammatory. Tazr-cy-[id number] free fluid within the abdomen. Subsequent analysis of the patient's diagnostic paracentesis showed that the fluid was likely due to portal hypertension. The patient also received an ultrasound of her right upper quadrant, which showed concern for hepatofugal flow and radiologist recommended a followup hepatic Doppler. Hepatic Doppler was performed, which confirmed similar flow findings. Review with the radiologist and gastroenterology together with the primary team concluded that the patient's hepatic vein was patent and flow findings were likely due to IVC compression caused by prominent hepatomegaly. Analysis of the patient's etiology of her acute hepatitis was essentially negative as far as lab studies were concerned. The patient initially denied any alcohol consumption to medical staff; however, after a while she subsequently admitted that she had extensive 15 year history of alcohol abuse with her drinking more under control over the last year. She denies any history of known liver disease. Hepatitis, HIV, syphilis, BLANCO and other autoimmune labs all returned normal. Toxicology was negative. Ascitic fluid analysis was negative for SBP and was suggestive for portal hypertension. After discussion with Gastroenterology, Dr. Fu it was determined that the patient has acute hepatitis was likely secondary to her alcohol consumption. Discussion with the patient was had and she was educated on the importance of alcohol cessation as well as low-sodium diet to decrease her ascitic symptoms. The patient was given the option for an MRI of her liver and abdomen. However, she adamantly refused due to her fear of this imaging procedure. On the day of discharge, the patient was thoroughly educated on the risks of her disease progression and the importance of alcohol cessation. She expressed understanding to this and all return precautions discussed. DISPOSITION: Stable. DISCHARGE INSTRUCTIONS: 1. Location: Home. 2. Diet: Low-sodium diet. 3. Activity: As tolerated. No restrictions. 4. Followup: PCP within 7 days, GI Dr. Too Fu as directed. Job ID: [id number]
== END 2019-01-25 15:22 | disposition home or self-care (01) | DRG 433 ==
LOC: ERS 10:20 → 2NO 16:36 → T4-A 01-24 18:52
PROVIDERS: ADMIT Family Medicine; ATTEND Family Medicine
PROC: 0W9G3ZX Drainage of Peritoneal Cavity, Percutaneous Approach, Diagnostic (ICD-10-PCS; principal; 2019-01-22)
DX: K70.11 Alcoholic hepatitis with ascites (principal); K76.6 Portal hypertension; K70.31 Alcoholic cirrhosis of liver with ascites; K52.9 Noninfective gastroenteritis and colitis, unspecified; D72.829 Elevated white blood cell count, unspecified; I10 Essential (primary) hypertension; E86.0 Dehydration; E87.6 Hypokalemia; F10.10 Alcohol abuse, uncomplicated; Z98.890 Other specified postprocedural states
CPT/HCPCS: 36415; 49083; 51702; 74177; 76705; 80053; 80074; 80306; 80307; 80500; 81003; 81015; 81240; 81241; 82042; 82103; 82104; 82105; 82390; 83090; 83516; 83540; 83550; 83690; 83735; 83930; 83935; 84100; 84145; 84157; 84300; 84703; 85025; 85060; 85240; 85300; 85303; 85305; 85307; 85379; 85598; 85610; 85611; 85670; 85730; 85732; 86038; 86147; 86225; 86706; 86708; 86780; 86803; 87070; 87086; 87205; 87340; 87389; 88112; 89051; 96361; 96365; 96367; 96375; 96376; J0696; J2001; J2270; J2405; J3411; J3475; J3480; J3490; J7042; J7050; Q0162; Q9966

== ENCOUNTER 2019-01-26 13:43 | Observation (INO) | payer SELFPAY ==
[2019-01-26 14:32] LABS: #Basophils 0.1 thou/uL (0.0-0.2); #Eosinphils 0.1 thou/uL (0.0-0.7); #Lymphocytes 1.5 thou/uL (1.20-3.40); #Monocytes 1.4 thou/uL (0.11-0.59); #Neutrophils 11.6 thou/uL (1.40-6.50); %Basophils 0.3 % (0.0-1.0); %Eosinophils 0.5 % (0.0-10.0); %Lymphocytes 10.1 % (21.0-51.0); %Monocytes 9.5 % (0.0-10.0); %Neutrophils 79.6 % (42.0-75.0); Hemoglobin 12.8 g/dL (12.0-16.0); Mean Corpuscular HGB CONC 32.8 g/dL (32.0-36.0); Mean Platelet Volume 8.6 fL (7.4-10.4); Platelet Count 358 thou/uL (130-400); RBC Distribution Width 11.9 % (11.5-14.5); Red Blood Cell (RBC) Count 3.54 mill/uL (4.20-5.40); White Blood Cell (WBC) Count 14.6 thou/uL (4.8-10.8)
[2019-01-26 14:38] LABS: INR-International Normal Ratio 1.6; PTT 37.3 SEC (22.9-36.1); Prothrombin Time 19.4 SEC (12.0-14.7)
[2019-01-26 14:57] LABS: ALT (SGPT) 28 U/L (8-55); AST (SGOT) 220 U/L (5-34); Albumin 2.4 g/dL (3.5-5.0); Alkaline Phosphatase 211 U/L (40-110); Anion Gap 11 mmol/L (10-20); BUN (Urea Nitrogen) Less than 4 mg/dL (7.0-18.7); Bilirubin, Total 4.2 mg/dL (0.2-1.2); Calc. Creatinine Clearance 0 mL/min (70-130); Calcium 7.9 mg/dL (7.8-10.44); Carbon Dioxide 24 mmol/L (22-29); Chloride 100 mmol/L (98-107); Estimated GFR-MDRD 90; Globulin 3.8 g/dL (2.4-3.5); Glucose 115 mg/dL (70-105); Potassium 4.4 mmol/L (3.5-5.1); Protein, Total 6.2 g/dL (6.0-8.3); Sodium 131 mmol/L (136-145)
[2019-01-26] MEDS ORDERED: Ondansetron PF 4 MG/2 ML Vial ONE (14:59)
[2019-01-26] MEDS ORDERED: Morphine 4 MG/ML VIAL ONE (14:59)
--- NOTE | 2019-01-26 15:08 | RAD ---
Chest AP view INDICATION: Shortness of breath COMPARISON: November 17, 2017 FINDINGS: Lungs:There is a left basilar linear opacity suspicious for atelectasis. There is patchy airspace opa city in the right lung base with a small right pleural effusion. Cardiac silhouette:The accentuated by the exam technique. Pulmonary vasculature:Normal Pleural spaces:There is a small right pleural effusion. Upper abdomen:No abnormality seen. Osseous structures: No acute osseous abnormality. Additional findings:None. IMPRESSION: Patchy airspace opacity with a small right pleural effusion in the right lung base is eunice picious for pneumonia with parapneumonic effusion. Recommend a dedicated two-view chest radiograph for further comparison. There is a small area of subsegmental atelectasis involving the left lung bas e.
--- NOTE | 2019-01-26 17:01 | PDOC.FPRHP ---
- History of Present Illness Chief Complaint: Abdominal distention, lower extremity edema History of Present Illness: 38yo female presents to ED complaining of increased abdominal distention and lower extremity edema since discharge yesterday. Pt states she had 1 BM since DC that was loose but not clear like prior to her last admission. Denies use of alcohol since DC and states she was following low sodium diet. Continues to have normal amount of urination since DC. States that her abdominal pain is worse since DC. Denies any fever, chills, cough, N/V. Previous admission HPI 4 days ago: Pt states that her diarrhea has been going on for 2 weeks and happening too many times per day to count and she has noticed decreased urine output to the point that she only pees once per day and it seems very concentrated. Pt states she was seen 1.5 weeks ago soon after developing these sx and was found to have a UTI and started on cipro. A few days later the pt's sx continued and she noted that she had a decreased appetite and was having nearly clear diarrhea. She was seen again due to increasing abdominal distention and started on flagyl. Pt came here today due to continuation of her sx. Pt denies any fever, chills, blood in stool, nausea, or vomiting. Initial workup in the ED at that time was significant for a CT showing hepatomegaly with fatty infiltrate, mild-mod free fluid, and wall thickening of cecum and ascending colon. Labs showed leukocytosis, elevated bilirubin, AST, and alk phos. UA suggested dehydration. ED Course: Labs either stable or improved since discharge. CXR showed left atelectasis vs effusion and possible infiltrate in RLL. Morphine and zofran. - Allergies/Adverse Reactions Allergies Allergy/AdvReac Type Severity Reaction Status Date / Time No Known Drug Allergies Allergy Verified 01/26/19 19:45 - Home Medications Medication Instructions Recorded Confirmed Type Gabapentin 100 mg PO TID #30 capsule 01/25/19 01/26/19 Rx Ibuprofen 400 mg PO TID #45 tablet 01/25/19 01/26/19 Rx - History PMHx: HTN - controlled off Rx PSHx: None FHx: No significant hx Social: 15 years of alcohol abuse per pt with a few glasses of wine per week over last year. Denies tobacco or drugs use but hx shows previous positive cocaine and amphetamine UDS - Review of Systems General: denies: fever/chills, weight/appetite/sleep changes, fatigue Eyes: denies: vision changes, other ENT: denies: other Respiratory: denies: cough, shortness of breath, exercise intolerance Cardiovascular: reports: edema (bilateral LE). denies: chest pain, palpitation , orthopnea Gastrointestinal: reports: diarrhea, abdominal pain. denies: nausea, vomiting, constipation, GI bleeding Genitourinary: denies: incontinence, dysuria, polyuria, discharge Skin: denies: rashes, lesions, jaundice Musculoskeletal: denies: pain, tenderness Neurological: reports: other (tremor). denies: weakness - Vital signs BP: 121/84, Pulse: 114, Resp: 16, Temp: 98.0 (Oral), Pain: 10, O2 sat: 99 - Physical Exam Constitutional: NAD, awake, alert and oriented, well developed HEENT: normocephalic and atraumatic, EOMI, conjunctiva clear, no scleral icterus , grossly normal vision, grossly normal hearing, MMM Neck: FROM, no JVD Heart: RRR, normal S1/S2, no murmurs/rubs/gallops, pulses present -Lungs: Diminished RLL Abdomen: bowel sounds present -Abdomen: Distended, percussive, tender RUQ, LUQ, suprepubic Musculoskeletal: normal structure, normal tone Neurological: no focal deficit, normal sensation -Neurological: Bilateral beating tremor of hands, not present in feet Skin: no rash/lesions, capillary refill <2 seconds, no jaundice Heme/Lymphatic: no unusual bruising or bleeding, no purpura, no petechia Psychiatric: normal mood and affect, good judgment and insight, intact recent and remote memory FMR H&P: Results - Labs Result Diagrams: 01/27/19 04:55 01/27/19 04:55 Lab results: WBC 14.6 thou/uL (4.8-10.8) H 01/26/19 14:22 Hgb 12.8 g/dL (12.0-16.0) 01/26/19 14:22 Hct 38.9 % (36.0-47.0) 01/26/19 14:22 MCV 110.0 fL (78.0-98.0) H 01/26/19 14:22 Plt Count 358 thou/uL (130-400) 01/26/19 14:22 Neutrophils % 79.6 % (42.0-75.0) H 01/26/19 14:22 Sodium 131 mmol/L (136-145) L 01/26/19 14:22 Potassium 4.4 mmol/L (3.5-5.1) 01/26/19 14:22 Chloride 100 mmol/L (98-107) 01/26/19 14:22 Carbon Dioxide 24 mmol/L (22-29) 01/26/19 14:22 BUN Less than 4 mg/dL (7.0-18.7) L 01/26/19 14:22 Creatinine 0.72 mg/dL (0.6-1.1) 01/26/19 14:22 Glucose 115 mg/dL (70-105) H 01/26/19 14:22 Calcium 7.9 mg/dL (7.8-10.44) 01/26/19 14:22 Total Bilirubin 4.2 mg/dL (0.2-1.2) H 01/26/19 14:22 AST 220 U/L (5-34) H 01/26/19 14:22 ALT 28 U/L (8-55) 01/26/19 14:22 Alkaline Phosphatase 211 U/L (40-110) H 01/26/19 14:22 Serum Total Protein 6.2 g/dL (6.0-8.3) 01/26/19 14:22 Albumin 2.4 g/dL (3.5-5.0) L 01/26/19 14:22 - Radiology Interpretation Chest x-ray Status: report reviewed by me (Pathcy aprispace opacity with a small right pleural effusion in the right lung suspicious for pna and parapneumatic effusion. recommend a dedicated 2 view radiography. Small area of subsegmental atelectasis involving left lung base) FMR H&P: A/P - Problem List (1) Alcoholic hepatitis Current Visit: No Status: Acute Code(s): K70.10 - ALCOHOLIC HEPATITIS WITHOUT ASCITES Qualifiers: Ascites presence: with ascites Qualified Code(s): K70.11 - Alcoholic hepatitis with ascites (2) Ascites Current Visit: No Status: Acute Code(s): R18.8 - OTHER ASCITES (3) History of alcohol abuse Current Visit: Yes Status: Acute Code(s): F10.11 - ALCOHOL ABUSE, IN REMISSION - Plan Alcohlic Hepatitis most likely 15 year history of alcohol abuse, now 1 year of regular alcohol consumption within recommended limits Discharged yesterday following hepatitis workup - extensive workup for causes other than alcohol induced hepatitis was negative during previous admission - Previous admission: Abd CT: Hepatomegaly, fatty infiltration of the liver - Previous evaluation during last admission raised concern for hepatofugal flow on RUQ US and hepatic doppler - Pt was offered an abdominal MRV to r/o this as a cause but pt refused prior to discharge - Pt states that she has looked up more about MRI's and feels more comfortable doing so now - Pt has hyponatremia and hypoalbuminemia, elevated bilirubin and AST, coagulopathy; all of which is either stable or improved from levels on discharge yesterday - Ordered ammonia, stool studies - Cont to trend CMP and CBC Ascites Continuation and worsening of ascities - Previously r/o SBP - SAAG suggests 2/2 portal hypertension History of alcohol abuse - Alcohol level ordered - ASE protocol Code status: Full VTE ppx: SCD's' Diet: Low sodium Dispo: Inpt medicine, MRV to rule out Budd-Chiari FMR H&P: Upper Level - Pertinent history 38 yo F w/hx of recently dx'd etoh cirrhosis and discharged 1 day ago here with complaint of worsening abdominal pain. During her previous admission she had similar pain that was attributed to capsular stretch. She was sent home with gabapentin and motrin for pain control. After discharge her pain and distension have worsened, thus pt returned for evaluation. GI was consulted from ER who recommended eval for Budd Chiari with MRV of liver. - Pertinent findings See direct marketing intern portion for full vitals, labs, PE, and ROS ROS General denies fever, chills, or confusion CV denies CP or palpitation Resp denies SOB or cough GI complains of abdominal pain and distension. Has recently had loose stool. No BRBPR or melanotic stool PE General A&O x4, NAD HEENT scleral icterus b/l CV RRR no murmur Resp CTA Abd is distended. No fluid wave. TTP over LUQ and RUQ. Extremities no asterixis Skin mild jaundice - Plan Date/Time: 01/26/19 0866 Rafi Patel DO, have evaluated this patient and agree with findings/plan as outlined by direct marketing intern resident. Pertinent changes/additions are listed here. 1. Acute on Chronic hepatitis - admit to medicine for pain control and work up for Ata Daly - V in am - GI has been consulted - gabapentin and motrin for pain control. Will avoid opiates - MELD 22 2. Diarrhea - source unknown, stool studies pending - appears to have normal volume status 3. Abnormal UA - UTI vs contamination, cultures pending. Will treat if indicated PPx SCD Code Full Diet regular Addendum - Attending - Attending Attestation Date/Time: 01/27/19 9158 I personally evaluated the patient and discussed the management with Dr. Mendiola yesterday evening at time of admission. I agree with the History, Examination, Assessment and Plan documented above with any addition or exceptions noted below.
[2019-01-26 17:15] LABS: Bilirubin 1+ (Negative); Blood, Urine Trace (Negative); Clarity Extra Turbid (Clear); Glucose, Urine (Dipstick) 30 mg/dL (Negative); Leukocyte Negative Leu/uL (Negative); Nitrite Negative (Negative); Protein, Urine (Dipstick) 100 mg/dL (Neg-Trace); Urobilinogen Normal mg/dL (Less than 2); WBC/HPF 21-50 HPF (0-3)
[2019-01-26 17:28] LABS: Bacteria/HPF 4+ HPF (None Seen)
[2019-01-26 19:16] VITALS: BMI 23.1
[2019-01-26] MEDS ORDERED: diphenhydrAMINE 12.5 MG/5 ML UDCUP PO PRN (19:54)
[2019-01-26] MEDS: Ibuprofen 200 MG TAB PO SCH (21:12)
[2019-01-26] MEDS: Gabapentin 100 MG CAP PO SCH (21:12)
[2019-01-26] MEDS ORDERED: Methocarbamol 500 MG TAB PO SCH (21:15)
[2019-01-27] MEDS ORDERED: traMADol HCl 50 MG TAB PO SCH ×2 (00:45→01:15)
[2019-01-27] MEDS: diphenhydrAMINE 50 MG CAP PO PRN ×3 (02:35→20:52)
[2019-01-27 05:18] LABS: #Basophils 0.1 thou/uL (0.0-0.2); #Eosinphils 0.2 thou/uL (0.0-0.7); #Lymphocytes 1.5 thou/uL (1.20-3.40); #Monocytes 1.5 thou/uL (0.11-0.59); #Neutrophils 11.1 thou/uL (1.40-6.50); %Basophils 0.5 % (0.0-1.0); %Eosinophils 1.1 % (0.0-10.0); %Lymphocytes 10.7 % (21.0-51.0); %Monocytes 10.4 % (0.0-10.0); %Neutrophils 77.3 % (42.0-75.0); Mean Corpuscular HGB CONC 32.5 g/dL (32.0-36.0); Mean Corpuscular Hemoglobin 35.2 pg (27.0-31.0); Mean Platelet Volume 9.2 fL (7.4-10.4); Platelet Count 297 thou/uL (130-400); RBC Distribution Width 12.1 % (11.5-14.5); Red Blood Cell (RBC) Count 3.69 mill/uL (4.20-5.40); White Blood Cell (WBC) Count 14.4 thou/uL (4.8-10.8)
--- NOTE | 2019-01-27 05:55 | PDOC.FM ---
- Subjective Subjective: Pt c/o of pain and inability to sleep last night. Pt going for MRV today to further evaluate heptomegaly. - Objective MAR Reviewed: Yes Vital Signs & Weight: Vital Signs (12 hours) Temp Pulse Resp BP BP Pulse Ox 01/27/19 03:55 98 F 98 18 112/74 97 01/26/19 23:37 98.6 F 98 16 100/60 97 01/26/19 19:00 97.7 F 110 H 16 127/83 99 Weight Weight 63.095 kg Result Diagrams: 01/27/19 04:55 01/27/19 04:55 Additional Labs: Laboratory Tests 01/26/19 01/26/19 01/27/19 14:22 14:22 04:55 PT 19.4 H INR 1.6 APTT 37.3 H Total Bilirubin 4.1 H AST 258 H ALT 30 Alkaline Phosphatase 203 H Albumin 2.4 L Globulin 3.9 H Albumin/Globulin Ratio 0.6 L Plasma Alcohol Less than 10 Phys Exam - Physical Examination Constitutional: NAD HEENT: PERRLA, moist MMs Neck: no nodes, supple, full ROM Respiratory: no wheezing, no rales, no rhonchi, clear to auscultation bilateral Cardiovascular: RRR, no significant murmur, no rub Gastrointestinal: positive bowel sounds Distended abdomen. Hepatomegaly. Tender to light palpation. Musculoskeletal: pulses present 1+ LE Pitting Edema Bilaterally. Neurological: non-focal, normal sensation, moves all 4 limbs Psychiatric: normal affect, A&O x 3 Skin: no rash, cap refill <2 seconds Dx/Plan (1) History of alcohol abuse Code(s): F10.11 - ALCOHOL ABUSE, IN REMISSION Status: Acute (2) Alcoholic hepatitis Code(s): K70.10 - ALCOHOLIC HEPATITIS WITHOUT ASCITES Status: Acute Qualifiers: Ascites presence: with ascites Qualified Code(s): K70.11 - Alcoholic hepatitis with ascites (3) Ascites Code(s): R18.8 - OTHER ASCITES Status: Acute - Plan Plan: Alcohlic Hepatitis most likely 15 year history of alcohol abuse, now 1 year of regular alcohol consumption within recommended limits Discharged 01/25 following hepatitis workup - extensive workup for causes other than alcohol induced hepatitis was negative during previous admission - Previous admission: Abd CT: Hepatomegaly, fatty infiltration of the liver - Previous evaluation during last admission raised concern for hepatofugal flow on RUQ US and hepatic doppler - Pt was offered an abdominal MRV to r/o this as a cause but pt refused prior to discharge - Pt states that she has looked up more about MRI's and feels more comfortable doing so now - Pt has hyponatremia and hypoalbuminemia, elevated bilirubin and AST, coagulopathy; all of which is either stable or improved from levels on discharge yesterday - Ordered ammonia, stool studies - Cont to trend CMP and CBC - CMP 01/26: AST 220, ALT 28, Alk Phos 211, T bili 4.2, Albumin 2.4. - EtOH level <10 - PT 19.4, INR 1.6, PTT 37.3 - MRV ordered. - CXR: patcy airspace opacity. Right pleural effusion, with suspicion for pneumonia. Ascites Continuation and worsening of ascities - Previously r/o SBP - SAAG suggests 2/2 portal hypertension History of alcohol abuse - Alcohol level ordered - ASE protocol Code status: Full VTE ppx: SCD's' Diet: Low sodium Dispo: Pt Stable. Inpt medicine, MRV to rule out Budd-Chiari Addendum - Attending - Attending Attestation Date/Time: 01/27/19 0700 I personally evaluated the patient and discussed the management with Dr. Curry. I agree with the History, Examination, Assessment and Plan documented above with any addition or exceptions noted below. Patient here with recurrent abdominal pain associated with her alcoholic hepatitis. GI recommended MRI of the liver, which she declined during last hospitalization. We will work to get that completed today to ensure no acute issues ongoing, though we suspect her pain is more likely due to capsule stretch and hepatitis. Needs to remain off alcohol. Continue low dose NSAIDs for now. Labs improved overall from last admission. Further mgmt per MRI result. Can attempt paracentesis with IR if she continues to complain of distention from ascites.
[2019-01-27 05:58] LABS: ALT (SGPT) 30 U/L (8-55); AST (SGOT) 258 U/L (5-34); Albumin 2.4 g/dL (3.5-5.0); Alkaline Phosphatase 203 U/L (40-110); Anion Gap 13 mmol/L (10-20); BUN (Urea Nitrogen) Less than 4 mg/dL (7.0-18.7); Bilirubin, Total 4.1 mg/dL (0.2-1.2); Calc. Creatinine Clearance 89 mL/min (70-130); Calcium 7.9 mg/dL (7.8-10.44); Carbon Dioxide 20 mmol/L (22-29); Chloride 101 mmol/L (98-107); Estimated GFR-MDRD 75; Globulin 3.9 g/dL (2.4-3.5); Glucose 91 mg/dL (70-105); Potassium 4.3 mmol/L (3.5-5.1); Protein, Total 6.3 g/dL (6.0-8.3); Sodium 130 mmol/L (136-145)
[2019-01-27] MEDS: Gabapentin 100 MG CAP PO SCH ×3 (09:30→20:52)
[2019-01-27] MEDS ORDERED: Spironolactone 25 MG TAB PO SCH (09:30)
[2019-01-27] MEDS: Ibuprofen 200 MG TAB PO SCH ×3 (09:30→20:52)
[2019-01-27] MEDS ORDERED: Lorazepam 2 MG/ML VIAL SLOW IVP SCH (12:30)
[2019-01-27] MEDS: Spironolactone 25 MG TAB PO SCH (13:51)
--- NOTE | 2019-01-27 18:07 | MRI ---
MR OF THE ABDOMEN WITH AND WITHOUT IV CONTRAST 01/27/19 INDICATION: Concern for Budd-Chiari syndrome. Confirm hepatic vein patency. TECHNIQUE: Multiplanar and multisequence MR images were obtained of the abdomen with and without IV contrast. Th e patient had some issue with claustrophobia, therefore respiratory motion artifact limits some image detail. 12 mL of Multihance was utilized for the examination. Multiphase MR examination was performe d. A power injector was unavailable, hand injection was performed, therefore true arterial phase fabiana ging could not be obtained. COMPARISON: CT of the abdomen and pelvis dated 01/22/19 and right upper quadrant ultrasound dated 01/22/19 and hepa tic Doppler evaluation dated 01/22/19. FINDINGS: There are marked areas of steatosis seen throughout both the left and right hepatic lobe more promine ntly within the region of the caudate lobe. There is prominent hepatomegaly with the right hepatic lo be measuring 20 cm in length. The hepatomegaly is causing mass effect on the IVC as it traverses the liver. There is also mass effect on the hepatic veins narrowing them. Flow is demonstrated through e portal vein on multiple series. Flow is present within the right, middle and left hepatic veins. No suspicious enhancing lesion is evident within the liver. Patchy areas of heterogeneous enhancement are seen throughout the phases of the examination due to the presence of steatosis. There is moderate to prominent ascites within the abdominal cavity. There is moderate anasarca. There are small bilateral pleural effusions with bibasilar atelectasis. No focal renal lesion is evident. The adrenal glands and spleen are normal appearing. The pancreas is normal appearing. No definite area of abnormal marrow enhancement is demonstrated. IMPRESSION: 1. Marked hepatomegaly with scattered areas of steatosis. The mass effect from the hepatomegaly is causing narrowing of the IVC and hepatic veins without evidence of thrombosis. 2. No suspicious focal hepatic lesion. 3. Moderate to prominent ascites. 4. Small bilateral pleural effusions with bibasilar atelectasis. 5. Moderate anasarca. POS: BH
[2019-01-28] MEDS ORDERED: Ibuprofen 200 MG TAB PO SCH (02:07)
--- NOTE | 2019-01-28 05:45 | PDOC.FM ---
- Subjective Subjective: Pt states her pain is unbearable. Requesting pain medication. Pain is crampy in character, located directly over upper abdomen. Severe intensity. No acute overnight events. vitals stable. - Objective Vital Signs & Weight: Vital Signs (12 hours) Temp Pulse Resp BP Pulse Ox 01/28/19 00:54 98.1 F 92 12 115/68 95 01/27/19 19:17 97.8 F 102 H 14 115/81 94 L Weight Weight 63.095 kg I&O: 01/26/19 01/27/19 01/28/19 06:59 06:59 06:59 Output Total 300 Balance -300 Result Diagrams: 01/28/19 05:45 01/28/19 05:45 Phys Exam - Physical Examination Constitutional: NAD HEENT: PERRLA, moist MMs Neck: no nodes, supple, full ROM Respiratory: clear to auscultation bilateral Diminshed breath sounds. Cardiovascular: RRR, no significant murmur, no rub Distended abdomen, Hepatomegaly. Fluid wave. Tender to soft palpation. Musculoskeletal: pulses present, edema present (2+ pitting LE edema ) Neurological: non-focal, normal sensation, moves all 4 limbs Psychiatric: A&O x 3 Skin: no rash, normal turgor, cap refill <2 seconds Dx/Plan (1) History of alcohol abuse Code(s): F10.11 - ALCOHOL ABUSE, IN REMISSION Status: Acute (2) Alcoholic hepatitis Code(s): K70.10 - ALCOHOLIC HEPATITIS WITHOUT ASCITES Status: Acute Qualifiers: Ascites presence: with ascites Qualified Code(s): K70.11 - Alcoholic hepatitis with ascites (3) Ascites Code(s): R18.8 - OTHER ASCITES Status: Acute - Plan Plan: Alcohlic Hepatitis most likely 15 year history of alcohol abuse, now 1 year of regular alcohol consumption within recommended limits Discharged 01/25 following hepatitis workup - extensive workup for causes other than alcohol induced hepatitis was negative during previous admission - Previous admission: Abd CT: Hepatomegaly, fatty infiltration of the liver - Previous evaluation during last admission raised concern for hepatofugal flow on RUQ US and hepatic doppler - Pt was offered an abdominal MRV to r/o this as a cause but pt refused prior to discharge - Pt states that she has looked up more about MRI's and feels more comfortable doing so now - Pt has hyponatremia and hypoalbuminemia, elevated bilirubin and AST, coagulopathy; all of which is either stable or improved from levels on discharge yesterday - Ordered ammonia, stool studies - Cont to trend CMP and CBC - CMP 01/26: AST 220, ALT 28, Alk Phos 211, T bili 4.2, Albumin 2.4. - EtOH level <10 - PT 19.4, INR 1.6, PTT 37.3 - MRV: -Marked hepatomegaly with scattered areas of steatosis. Mass effect from hepatomegaly narrowing IVC and hepatic veins. No evidence of thrombosis. No other evidence of hepatic lesions. Moderate to prominent ascites. Small B pleural effusions, with bibasilar atelectasis. Moderate anasarca. - CXR: patcy airspace opacity. Right pleural effusion, with suspicion for pneumonia. Ascites Continuation and worsening of ascities - Previously r/o SBP - SAAG suggests 2/2 portal hypertension - Consider paracentesis today to relieve distended symptomatic pain. History of alcohol abuse - Alcohol level ordered - ASE protocol Code status: Full VTE ppx: SCD's' Diet: Low sodium Dispo: Pt Stable. Observation medicine, MRV showed mass effect compression of IVC. No Thrombosis. Addendum - Attending - Attending Attestation Date/Time: 01/28/19 8047 I personally evaluated the patient and discussed the management with Dr. Curry. I agree with the History, Examination, Assessment and Plan documented above with any addition or exceptions noted below. Patient here due to pain from hepatitis and ascites associated with chronic alcoholism and near cirrhosis. She has massive hepatomegaly on MRI but no evidence of vascular abnormalities other than narrowing due to mass effect. Patient will need to abstain from alcohol if she plans on any assisted survival. She has been started on diuretics for her ascites. Will discuss possible IR paracentesis for pain control. She is otherwise stable for discharge but will await input from GI today.
[2019-01-28 06:11] LABS: #Basophils 0.1 thou/uL (0.0-0.2); #Eosinphils 0.2 thou/uL (0.0-0.7); #Lymphocytes 1.9 thou/uL (1.20-3.40); #Monocytes 1.2 thou/uL (0.11-0.59); #Neutrophils 9.3 thou/uL (1.40-6.50); %Basophils 0.4 % (0.0-1.0); %Eosinophils 1.3 % (0.0-10.0); %Lymphocytes 14.8 % (21.0-51.0); %Monocytes 9.6 % (0.0-10.0); %Neutrophils 73.9 % (42.0-75.0); Hemoglobin 13.4 g/dL (12.0-16.0); Mean Corpuscular HGB CONC 32.9 g/dL (32.0-36.0); Mean Corpuscular Hemoglobin 35.5 pg (27.0-31.0); Mean Platelet Volume 9.1 fL (7.4-10.4); Platelet Count 293 thou/uL (130-400); RBC Distribution Width 12.1 % (11.5-14.5); Red Blood Cell (RBC) Count 3.78 mill/uL (4.20-5.40); White Blood Cell (WBC) Count 12.6 thou/uL (4.8-10.8)
[2019-01-28 06:35] LABS: ALT (SGPT) 37 U/L (8-55); AST (SGOT) 368 U/L (5-34); Albumin 2.5 g/dL (3.5-5.0); Alkaline Phosphatase 214 U/L (40-110); Anion Gap 10 mmol/L (10-20); BUN (Urea Nitrogen) 4 mg/dL (7.0-18.7); Bilirubin, Total 4.4 mg/dL (0.2-1.2); Calc. Creatinine Clearance 91 mL/min (70-130); Calcium 8.1 mg/dL (7.8-10.44); Carbon Dioxide 23 mmol/L (22-29); Chloride 98 mmol/L (98-107); Estimated GFR-MDRD 75; Glucose 88 mg/dL (70-105); Potassium 3.9 mmol/L (3.5-5.1); Protein, Total 6.5 g/dL (6.0-8.3); Sodium 127 mmol/L (136-145)
[2019-01-28] MEDS: Ibuprofen 200 MG TAB PO SCH (08:20)
[2019-01-28] MEDS: Gabapentin 100 MG CAP PO SCH (08:20)
[2019-01-28] MEDS: Spironolactone 25 MG TAB PO SCH (08:21)
[2019-01-28] MEDS ORDERED: Furosemide 20 MG TAB PO SCH (09:00)
[2019-01-28] MEDS ORDERED: Methocarbamol 500 MG TAB PO SCH (09:00)
--- NOTE | 2019-01-28 11:14 | ULT ---
Exam: Ultrasound guided paracentesis HISTORY: Ascites COMPARISON: MR the abdomen with and without contrast dated January 19, 2019 FINDINGS: Successful ultrasound-guided paracentesis. Total of 3530 cc of normal appearingascites was aspirated. TECHNIQUE: Consent obtained reformatory ultrasound-guided paracentesis. Right lower quadrant was deem ed appropriate. Skin was prepped and draped in a sterile fashion. 1% lidocaine, buffered with sodium bicarbonate was used for local anesthesia. Under ultrasound guidance, a 5 Samoan 7 cm Yueh cat heter is advanced in the peritoneal space. A total of 3530 cc of normal appearingascites was aspirated. No immediate or postprocedural complications IMPRESSION: Successful ultrasound-guided paracentesis.
[2019-01-28 11:35] VITALS: BP 119/80; TEMP 97.9
--- NOTE | 2019-01-29 08:03 | CON ---
DATE OF CONSULTATION: 01/27/2019 REASON FOR CONSULTATION: Abdominal pain, abdominal distention, and pedal edema. HISTORY OF PRESENT ILLNESS: Ms. Erika Rosas is a very pleasant 38-year-old female with history of chronic alcohol abuse over the years. The patient was hospitalized here this past week and was actually sent home on 01/25/2019. She returned back to the ER yesterday with abdominal distention, abdominal pain, and pedal edema. The last admission, she was seen by Dr. Too Fu. The patient did have a diagnostic paracentesis and it was negative for any SBP. The patient was sent home on 01/25/2019. She returned back to the ER yesterday with abdominal distention, abdominal pain, and pedal edema. GI consult requested because of the above reason. The patient has history of chronic alcohol abuse over the years. She quit drinking about 2 weeks ago as per the patient. She says her abdomen is more swollen than before and also is getting swelling of the legs. When she was discharged home, she was not given any diuretics. The patient had no fever. No nausea. No vomiting. No history of any hematochezia, any melena. No hematemesis. During last evaluation, she underwent x-ray evaluation, abdominal CAT scan, and abdominal sonogram, etc. She is scheduled for MRI of the abdomen today this morning. No relevant history. ALLERGIES: NONE. SOCIAL HISTORY: The patient does not smoke or use drugs. She has history of alcohol abuse and she says she quit drinking 2 weeks ago. MEDICAL ILLNESSES: 1. Chronic liver disease from alcohol abuse, mostly she has liver cirrhosis. 2. She has had rectal prolapse and had a colonoscopy done by Dr. Daley in the past and revealing mild rectum, mostly rectal prolapse. 3. Breast augmentation. FAMILY HISTORY: No family history of liver disease, cancer, stroke, or heart disease. MEDICATIONS: List reviewed. REVIEW OF SYSTEMS: A 10-point system review; CONSTITUTIONAL: No history of weight loss. No fever. She has good exercise tolerance. HEENT: No headache. No syncope. No diplopia. No double vision. No impaired vision. No hearing loss. No nose bleed. No sore throat. LUNGS: No chronic coughing. No dyspnea. No hemoptysis. CARDIOVASCULAR SYSTEM: There is chest pain. No palpitation, dyspnea, orthopnea, or PND. ABDOMEN: Abdominal distention, abdominal pain. No nausea or vomiting. No hematemesis or melena. GENITOURINARY: No dysuria or hematuria. MUSCULOSKELETAL: Unremarkable. NEURO: Unremarkable. ENDOCRINE: Unremarkable. PHYSICAL EXAMINATION: GENERAL: She appears very comfortable, in no distress, but the patient complains of abdominal pain. She wants some pain medication. VITAL SIGNS: She is afebrile, pulse is 95, and blood pressure is 114/79. HEENT: She is icteric. NECK: Supple. No adenitis or thyromegaly noted. CARDIOVASCULAR SYSTEM: First and second heart sounds are normal. LUNGS: Clear to auscultation. ABDOMEN: . Overall, the exam is very benign. She does have ascites on exam. EXTREMITIES: Reveals 2+ edema. LABORATORY DATA: From today, WBC 14,400, hemoglobin 13, hematocrit 40, MCV 108, platelet count is 297,000, polymorphs 77, lymphocytes 10, and monocytes 10. The leukocytosis even during last admission from 01/22, the same WBC count is noted. Chemistry panel shows bilirubin 4.1, AST 258, ALT 30, alkaline phosphatase 203, albumin 2.4. Lytes are normal. CO2 is 20. BUN is less than 4, creatinine 0.84. CLINICAL IMPRESSION: A 38-year-old female with liver cirrhosis from alcohol abuse. She was also having pedal edema. The abdomen is really benign. She complains of abdominal pain with minimal abdominal findings. She is also very anxious, nervous and she had a lot of questions about her liver is going to get back to normal. RECOMMENDATIONS: 1. Start the patient on low-dose Lasix 20 once a day and Aldactone 50 once a day. 2. Consider therapeutic paracentesis . Hopefully, she can go home after the paracentesis with low-dose diuretics. Again, she will follow up with Dr. Jung Daley as an outpatient. Job ID: [id number]
--- NOTE | 2019-01-30 08:50 | DIS ---
DATE OF ADMISSION: 01/26/2019 DATE OF DISCHARGE: 01/28/2019 RESIDENT: Katty Curry DO ADMITTING ATTENDING: Gilmar Russ MD DISCHARGE ATTENDING: Dr. Ng CONSULTS: GI, Dr. Cruz. PROCEDURES PERFORMED: 1. Paracentesis on 01/28/2019, total of 3530 mL of normal-appearing ascitic fluid was aspirated. 2. 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 FINDINGS: Marked hepatomegaly with scattered areas of steatosis, mass effect from hepatomegaly causing narrowing of the IVC and hepatic veins without evidence of thrombosis. PRIMARY DIAGNOSES: 1. Alcoholic hepatitis. 2. Ascites. 3. History of alcohol abuse. DISCHARGE MEDICATIONS: 1. Benadryl 50 mg p.o. q.8 hours. 2. Furosemide 20 mg p.o. daily. 3. Gabapentin 100 mg p.o. t.i.d. 4. Ibuprofen 400 mg p.o. t.i.d. 5. Robaxin 500 mg p.o. daily. 6. Spironolactone 50 mg p.o. daily. HISTORY OF PRESENT ILLNESS/HOSPITAL COURSE: Ms. Erika Rosas is a 38-year-old female, who was admitted to the hospital on 01/26/2019 after just being discharged on 01/25/2019 for alcoholic hepatitis treatment and workup. The patient had a thorough workup on admission on 01/22/2019 ruling out every hepatitis cause other than alcoholic hepatitis. On this admission, the patient underwent a paracentesis for therapy of her pain from the distention of her ascites to her abdomen and MRV to rule out Budd-Chiari syndrome. The MRV did not show any hepatic vein thrombosis. It showed mass effect compressing the IVC and hepatic veins from the hepatitis that she is currently dealing with. The patient was counseled that there was not much workup to be done at the hospital, therapy and evaluation could be continued outpatient with close followup with primary care physician and GI doctor. The patient was agreeable to the discharge plan. DISPOSITION: She was stable upon discharge. DISCHARGE INSTRUCTIONS: 1. Location: Home. 2. Diet: Low-sodium, heart healthy. 3. Activity: As tolerated. 4. Followup: Follow up with primary care in 1 week and with GI doctor as an outpatient. Job ID: [id number] [facility]
--- NOTE | 2019-02-03 09:53 | EKG ---
Test Reason : Blood Pressure : / mmHG Vent. Rate : 103 BPM Atrial Rate : 103 BPM P-R Int : 126 ms QRS Dur : 078 ms QT Int : 340 ms P-R-T Axes : 010 -02 -14 degrees QTc Int : 445 ms Sinus tachycardia Possible Anterolateral infarct , age undetermined Abnormal ECG Confirmed by FAHAD JEFFERY D.O. ([id number]), clinical editor JEVON MARTINEZ ([id number]) on 02/03/2019 9:53:28 AM Referred By: Confirmed By:FAHAD JEFFERY D.O.
== END 2019-01-28 13:32 | disposition home or self-care (01) ==
LOC: ERS 13:43 → 2SW 19:11
PROVIDERS: ADMIT Family Medicine; ATTEND Family Medicine
PROC: 0W9G3ZZ Drainage of Peritoneal Cavity, Percutaneous Approach (ICD-10-PCS; principal; 2019-01-28)
DX: K70.11 Alcoholic hepatitis with ascites (principal); K70.31 Alcoholic cirrhosis of liver with ascites; F10.11 Alcohol abuse, in remission; K76.0 Fatty (change of) liver, not elsewhere classified; I10 Essential (primary) hypertension; E87.1 Hypo-osmolality and hyponatremia; E88.09 Other disorders of plasma-protein metabolism, not elsewhere classified; Z79.899 Other long term (current) drug therapy
CPT/HCPCS: 36415; 49083; 51701; 71045; 74183; 80053; 80307; 81003; 81015; 82140; 85025; 85610; 85730; 87086; 93005; 96374; 96375; A4353; J2060; J2270; J2405; Q0163

== ENCOUNTER 2019-01-31 16:49 | Emergency (ER) | payer SELFPAY ==
[2019-01-31 18:28] LABS: Bacteria/HPF 3+ HPF (None Seen); Bilirubin Negative (Negative); Blood, Urine 1+ (Negative); Clarity Turbid (Clear); Glucose, Urine (Dipstick) Normal (Negative); Leukocyte 250 Leu/uL (Negative); Nitrite Negative (Negative); Protein, Urine (Dipstick) 20 mg/dL (Neg-Trace); Squamous Epithelial 21-50 HPF (0-3); Urobilinogen Normal mg/dL (Less than 2); WBC/HPF Greater than 50 HPF (0-3)
[2019-01-31 18:40] LABS: Hemoglobin 13.9 g/dL (12.0-16.0); Mean Corpuscular HGB CONC 32.7 g/dL (32.0-36.0); Mean Corpuscular Hemoglobin 35.2 pg (27.0-31.0); Mean Platelet Volume 8.9 fL (7.4-10.4); Platelet Count 283 thou/uL (130-400); Red Blood Cell (RBC) Count 3.95 mill/uL (4.20-5.40); White Blood Cell (WBC) Count 12.9 thou/uL (4.8-10.8)
[2019-01-31 19:02] LABS: Band 4 % (5-11); Lymphocytes 10 % (21-51); MDiff Complete? YES; Monocytes 4 % (0-10); Neutrophil 82 % (42-75); Platelet Morphology Comment Appears Adequate
[2019-01-31 19:15] LABS: ALT (SGPT) 48 U/L (8-55); AST (SGOT) 391 U/L (5-34); Albumin 2.6 g/dL (3.5-5.0); Alkaline Phosphatase 198 U/L (40-110); Anion Gap 16 mmol/L (10-20); BUN (Urea Nitrogen) 11 mg/dL (7.0-18.7); Bilirubin, Total 3.8 mg/dL (0.2-1.2); Calc. Creatinine Clearance 0 mL/min (70-130); Calcium 8.2 mg/dL (7.8-10.44); Carbon Dioxide 21 mmol/L (22-29); Chloride 97 mmol/L (98-107); Estimated GFR-MDRD 36; Globulin 4.5 g/dL (2.4-3.5); Glucose 87 mg/dL (70-105); Lipase 36 U/L (8-78); Potassium 3.8 mmol/L (3.5-5.1); Protein, Total 7.1 g/dL (6.0-8.3); Sodium 130 mmol/L (136-145)
[2019-01-31 19:17] LABS: INR-International Normal Ratio 1.5; Prothrombin Time 17.7 SEC (12.0-14.7)
[2019-01-31] MEDS ORDERED: Lidocaine 1% (PF) 30 ML VIAL ONE (19:19)
[2019-01-31] MEDS ORDERED: Morphine 2 MG/ML SYRINGE ONE (19:39)
[2019-01-31] MEDS ORDERED: Albumin 25% 25 GM/100 ML BOT IVPB SCH (20:00)
[2019-01-31 20:46] LABS: Fluid, Glucose 105 mg/dL (Not Available); Fluid, Protein Less than 1.0 g/dL (Not Available)
[2019-01-31 21:23] LABS: RBC Count-Automated (BF) 183 /cumm; WBC/Nucleated-Auto (BF) 162 uL
[2019-01-31 21:27] LABS: BF Color Yellow; Body Fluid Source Paracentesis Fluid; Clarity Cloudy/Turbid (Clear); Tube # 1
[2019-01-31 22:14] LABS: Cell Count Non Hematic 69 %; Lymphocytes 17 %
[2019-01-31 22:21] LABS: Segmented Neutrophils 14 %
== END 2019-01-31 21:58 | disposition home or self-care (01) ==
LOC: ERS 16:49
DX: R18.8 Other ascites (principal); R14.0 Abdominal distension (gaseous); R10.9 Unspecified abdominal pain; N39.0 Urinary tract infection, site not specified; F41.9 Anxiety disorder, unspecified; F32.9 Major depressive disorder, single episode, unspecified; F43.10 Post-traumatic stress disorder, unspecified; Z79.899 Other long term (current) drug therapy
CPT/HCPCS: 36415; 49082; 80053; 81003; 81015; 82945; 83690; 84157; 85025; 85060; 85610; 85730; 87070; 87205; 89051; 96365; J2001; J2270; P9047

== ENCOUNTER 2019-02-04 17:41 | Emergency (ER) | payer SELFPAY ==
[2019-02-04 18:55] LABS: #Basophils 0.1 thou/uL (0.0-0.2); #Eosinphils 0.2 thou/uL (0.0-0.7); #Lymphocytes 1.8 thou/uL (1.20-3.40); #Monocytes 1.3 thou/uL (0.11-0.59); %Basophils 0.5 % (0.0-1.0); %Eosinophils 1.3 % (0.0-10.0); %Lymphocytes 13.7 % (21.0-51.0); %Monocytes 9.6 % (0.0-10.0); %Neutrophils 74.9 % (42.0-75.0); Hemoglobin 12.7 g/dL (12.0-16.0); Mean Corpuscular HGB CONC 33.1 g/dL (32.0-36.0); Mean Platelet Volume 8.5 fL (7.4-10.4); Platelet Count 264 thou/uL (130-400); Red Blood Cell (RBC) Count 3.64 mill/uL (4.20-5.40); White Blood Cell (WBC) Count 13.3 thou/uL (4.8-10.8)
[2019-02-04] MEDS ORDERED: Ondansetron ODT 4 MG TAB ONE (19:05)
[2019-02-04 19:15] LABS: ALT (SGPT) 42 U/L (8-55); AST (SGOT) 284 U/L (5-34); Albumin 2.6 g/dL (3.5-5.0); Alkaline Phosphatase 166 U/L (40-110); Anion Gap 12 mmol/L (10-20); BUN (Urea Nitrogen) 13 mg/dL (7.0-18.7); Bilirubin, Total 2.9 mg/dL (0.2-1.2); Calc. Creatinine Clearance 0 mL/min (70-130); Calcium 8.4 mg/dL (7.8-10.44); Carbon Dioxide 29 mmol/L (22-29); Chloride 98 mmol/L (98-107); Estimated GFR-MDRD 76; Globulin 3.7 g/dL (2.4-3.5); Glucose 90 mg/dL (70-105); Lipase 51 U/L (8-78); Potassium 3.3 mmol/L (3.5-5.1); Protein, Total 6.3 g/dL (6.0-8.3); Sodium 136 mmol/L (136-145)
[2019-02-04] MEDS ORDERED: Lidocaine 1% (PF) 30 ML VIAL ONE (19:46)
[2019-02-04] MEDS ORDERED: Ketorolac Tromethamine 30 MG/ML VIAL ONE (20:02)
[2019-02-04 20:19] LABS: RBC Count-Automated (BF) 183 /cumm; WBC/Nucleated-Auto (BF) 97 uL
[2019-02-04 20:28] LABS: BF Color Yellow; Body Fluid Source Ascites Body Fluid; Clarity Hazy (Clear); Tube # 1
[2019-02-04] MEDS ORDERED: Albumin 25% 25 GM/100 ML BOT IVPB SCH (20:30)
[2019-02-04 20:37] LABS: BF Segmented Neutrophils 7 %; Cell Count Non Hematic 73 %; Lymphocytes 18 %
== END 2019-02-04 22:14 | disposition home or self-care (01) ==
LOC: ERS 17:41
DX: R18.8 Other ascites (principal); R94.5 Abnormal results of liver function studies; I10 Essential (primary) hypertension; F41.9 Anxiety disorder, unspecified; F32.9 Major depressive disorder, single episode, unspecified; Z79.899 Other long term (current) drug therapy
CPT/HCPCS: 36415; 49083; 80053; 82945; 83690; 84157; 85025; 85060; 87070; 87205; 89051; 96365; 96375; J1885; J2001; P9047; Q0162

== ENCOUNTER → 2019-02-09 | Day surgery (SDC) | payer SELFPAY ==
[~2019-02-09] MED LIST: Sodium Bicarbonate 2.5 MEQ/5 ML VIAL ONE
[2019-02-09 12:56] LABS: #Basophils 0.1 thou/uL (0.0-0.2); #Eosinphils 0.2 thou/uL (0.0-0.7); #Lymphocytes 2.1 thou/uL (1.20-3.40); #Monocytes 0.7 thou/uL (0.11-0.59); #Neutrophils 9.3 thou/uL (1.40-6.50); %Basophils 1.2 % (0.0-1.0); %Eosinophils 1.4 % (0.0-10.0); %Monocytes 5.9 % (0.0-10.0); %Neutrophils 74.6 % (42.0-75.0); Hemoglobin 12.9 g/dL (12.0-16.0); Mean Corpuscular HGB CONC 33.4 g/dL (32.0-36.0); Mean Corpuscular Hemoglobin 35.1 pg (27.0-31.0); Platelet Count 271 thou/uL (130-400); RBC Distribution Width 12.1 % (11.5-14.5); Red Blood Cell (RBC) Count 3.68 mill/uL (4.20-5.40); White Blood Cell (WBC) Count 12.4 thou/uL (4.8-10.8)
[2019-02-09 13:04] LABS: INR-International Normal Ratio 1.5; Prothrombin Time 18.2 SEC (12.0-14.7)
[2019-02-09 13:16] LABS: ALT (SGPT) 49 U/L (8-55); AST (SGOT) 302 U/L (5-34); Albumin 3.1 g/dL (3.5-5.0); Alkaline Phosphatase 144 U/L (40-110); Anion Gap 12 mmol/L (10-20); BUN (Urea Nitrogen) 4 mg/dL (7.0-18.7); Bilirubin, Total 2.2 mg/dL (0.2-1.2); Calc. Creatinine Clearance 116 mL/min (70-130); Carbon Dioxide 27 mmol/L (22-29); Chloride 99 mmol/L (98-107); Estimated GFR-MDRD Greater than 90; Globulin 3.7 g/dL (2.4-3.5); Glucose 142 mg/dL (70-105); Protein, Total 6.8 g/dL (6.0-8.3); Sodium 135 mmol/L (136-145)
[2019-02-09 13:59] LABS: Potassium 2.8 mmol/L (3.5-5.1)
--- NOTE | 2019-02-09 14:01 | ULT ---
Sonogram abdomen limited HISTORY: Hepatitis. Ascites. FINDINGS: Exam was originally scheduled as a sonographic guided paracentesis. Survey of the abdomen prior to the procedure shows a small to moderate amount of free fluid. Extensiv e bowel, however, flow noted throughout the fluid, approximating and abutting the peritoneal surface. The limited amount of fluid was discussed with the patient who agreed that, based on the risk versus benefit of draining the fluid, the procedure should not be performed. IMPRESSION: Limited amount of free fluid within the abdomen. Therapeutic paracentesis would be of lin ited benefit, especially considering the risk to benefit ratio. Paracentesis not performed. If the fluid continues to accumulate, the abdomen could be reevaluated an d paracentesis performed when appropriate.
== END ==
LOC: ULT 12:38
PROVIDERS: ATTEND Physician Assistant Medical
PROC: 0W9G3ZZ Drainage of Peritoneal Cavity, Percutaneous Approach (ICD-10-PCS; principal; 2019-02-09)
PROC: BW40ZZZ Ultrasonography of Abdomen (ICD-10-PCS; principal; 2019-02-09)
DX: K70.11 Alcoholic hepatitis with ascites (principal); B19.9 Unspecified viral hepatitis without hepatic coma; F41.9 Anxiety disorder, unspecified; F32.9 Major depressive disorder, single episode, unspecified; Z79.899 Other long term (current) drug therapy
CPT/HCPCS: 76705; 80053; 85025; 85610

== ENCOUNTER 2019-02-21 10:19 | Day surgery (SDC) | payer SELFPAY ==
[2019-02-21] MEDS ORDERED: Sodium Bicarbonate 2.5 MEQ/5 ML VIAL ONE (10:54)
[2019-02-21 11:49] VITALS: BP 122/89; TEMP 98
--- NOTE | 2019-02-21 11:51 | ULT ---
Exam: Ultrasound guided paracentesis HISTORY: Ascites COMPARISON: 01/28/2019 FINDINGS: Successful ultrasound-guided paracentesis. Total of 3.8 L of yellow color ascites was aspir ated. TECHNIQUE: Consent obtained reformatory ultrasound-guided paracentesis. Right lower quadrant was deem ed appropriate. Skin was prepped and draped in a sterile fashion. 1% lidocaine, buffered with sodium bicarbonate was used for local anesthesia. Under ultrasound guidance, a 5 [place] 7 cm Yueh cat heter is advanced in the peritoneal space. A total of 3.8 L of yellow color ascites was aspirated. No immediate or postprocedural complications IMPRESSION: Successful ultrasound-guided paracentesis.
== END 2019-02-21 11:45 | disposition home or self-care (01) ==
LOC: ULT 10:19
PROVIDERS: ATTEND Physician Assistant Medical
PROC: 0W9G3ZZ Drainage of Peritoneal Cavity, Percutaneous Approach (ICD-10-PCS; principal; 2019-02-21)
DX: R18.8 Other ascites (principal); B17.9 Acute viral hepatitis, unspecified; F10.10 Alcohol abuse, uncomplicated; F41.9 Anxiety disorder, unspecified; Z79.899 Other long term (current) drug therapy
CPT/HCPCS: 49083

== ENCOUNTER 2019-03-02 12:32 | Observation (INO) | payer MEDICAID ==
[2019-03-02 13:29] LABS: #Monocytes 0.9 thou/uL (0.11-0.59); #Neutrophils 5.7 thou/uL (1.40-6.50); %Basophils 0.2 % (0.0-1.0); %Eosinophils 0.3 % (0.0-10.0); %Lymphocytes 12.5 % (21.0-51.0); %Monocytes 11.4 % (0.0-10.0); %Neutrophils 75.6 % (42.0-75.0); Hemoglobin 12.6 g/dL (12.0-16.0); Mean Corpuscular Hemoglobin 34.1 pg (27.0-31.0); Mean Platelet Volume 10.2 fL (7.4-10.4); Platelet Count 99 thou/uL (130-400); RBC Distribution Width 12.4 % (11.5-14.5); Red Blood Cell (RBC) Count 3.69 mill/uL (4.20-5.40); White Blood Cell (WBC) Count 7.6 thou/uL (4.8-10.8)
[2019-03-02 13:44] LABS: Large Platelets SLIGHT; MDiff Complete? YES; Macrocytosis SLIGHT = 6-15 cells (100X) (0-5/hpf); Platelet Morphology Comment Appears Decreased
[2019-03-02] MEDS ORDERED: Ondansetron ODT 4 MG TAB ONE (14:28)
[2019-03-02 14:45] LABS: Clarity Turbid (Clear); Leukocyte Large (Negative); Nitrite Unable to Interpret (Negative); Protein, Urine (Dipstick) 100 mg/dL (Neg-Trace)
[2019-03-02 14:46] LABS: Bilirubin Large (Negative); Blood, Urine Trace (Negative); Glucose, Urine (Dipstick) Unable to Interpret mg/dL (Negative); Urobilinogen UNABLE TO INTERPRET mg/dL (Less than 2)
[2019-03-02 14:50] LABS: ALT (SGPT) 21 U/L (8-55); AST (SGOT) 127 U/L (5-34); Albumin 2.5 g/dL (3.5-5.0); Alkaline Phosphatase 177 U/L (40-110); Anion Gap 14 mmol/L (10-20); BUN (Urea Nitrogen) Less than 4 mg/dL (7.0-18.7); Calc. Creatinine Clearance 0 mL/min (70-130); Calcium 7.4 mg/dL (7.8-10.44); Carbon Dioxide 28 mmol/L (22-29); Chloride 89 mmol/L (98-107); Estimated GFR-MDRD Greater than 90; Glucose 99 mg/dL (70-105); Protein, Total 6.5 g/dL (6.0-8.3); Sodium 128 mmol/L (136-145)
[2019-03-02 14:53] LABS: RBC/HPF 0-3 HPF (0-3); WBC/HPF Greater Than 50 HPF (0-3)
[2019-03-02 14:54] LABS: Potassium 2.6 mmol/L (3.5-5.1)
[2019-03-02 14:54] LABS: Bacteria/HPF 1+ HPF (None Seen); Mucous/LPF 2+ LPF (<2+); Squamous Epithelial Greater than 50 HPF (0-3)
[2019-03-02] MEDS ORDERED: Potassium Chloride 20 MEQ TAB ONE (15:01)
[2019-03-02] MEDS ORDERED: Promethazine HCl 25 MG/ML VIAL ONE (15:06)
[2019-03-02] MEDS ORDERED: Morphine 2 MG/ML SYRINGE ONE (15:07)
--- NOTE | 2019-03-02 16:00 | PDOC.FPRHP ---
- History of Present Illness Chief Complaint: Abdominal pain History of Present Illness: Patient is a 38 yo female who presents with complaint of dull achy abdominal pain all over, worse across her lower abdomen. Patient normally has paracentesis every 3-4 days but has not been able to make paracentesis appointments. Her last paracentesis was 9 days ago. She says her stomach began to hurt 3 days ago and she has not eaten anything and has drank very little liquid since this time. Patient denies fever or pain out of proportion during this time period. She has a history of SBP but states this pain is different from that experience. Incidentally the patient was found to have a potassium of 2.6 on ER labs. ED Course: Given Zofran, K+ 40 meQ, Morphine 2 mg, Phenergan - Allergies/Adverse Reactions Allergies Allergy/AdvReac Type Severity Reaction Status Date / Time No Known Drug Allergies Allergy Verified 02/09/19 14:06 - Home Medications Medication Instructions Recorded Confirmed Type Methocarbamol [Robaxin] 500 mg PO DAILY #30 tab 01/28/19 03/02/19 Rx diphenhydrAMINE [Benadryl] 50 mg PO Q8H PRN cap 01/28/19 03/02/19 Rx Furosemide [Lasix] 40 mg PO DAILY 02/09/19 03/02/19 History Potassium Chloride [K-Dur] 20 meq PO DAILY #30 tab 03/04/19 Rx Spironolactone [Aldactone] 200 mg PO QAM-WM #30 tab 03/04/19 Rx - History PMHx: HTN, Cirrhosis 2/2 EtOH abuse x 25 yrs PSHx: None FHx: No significant hx Social: 25 years of alcohol abuse. Denies current EtOH, tobacco or drug use but hx shows previous positive cocaine and amphetamine UDS - Review of Systems General: reports: weight/appetite/sleep changes. denies: fever/chills, fatigue ENT: denies: nasal congestion Respiratory: denies: cough, congestion, shortness of breath Cardiovascular: denies: chest pain, edema Gastrointestinal: reports: nausea, abdominal pain. denies: vomiting Genitourinary: denies: dysuria Skin: denies: rashes, lesions Musculoskeletal: denies: pain, tenderness, arthritis/arthralgias Neurological: denies: numbness, weakness - Vital signs BP: 121/87 HR: 115 RR: 16 Tmax: 98.7 Pox: 97% on RA Wt: 59 kg - Physical Exam Constitutional: NAD, awake, alert and oriented, well developed HEENT: normocephalic and atraumatic, EOMI, conjunctiva clear, no scleral icterus , grossly normal vision, grossly normal hearing, MMM Neck: supple, FROM, no JVD Heart: RRR, normal S1/S2, no murmurs/rubs/gallops, pulses present, no edema Lungs: CTAB, no respiratory distress, good air movement, no wheezing Abdomen: bowel sounds present -Abdomen: Distended but not tight. TTP across lower abdomen. Positive fluid wave. Musculoskeletal: normal structure, normal tone, ROM grossly normal Neurological: no focal deficit, normal sensation Skin: no rash/lesions, no jaundice Heme/Lymphatic: no unusual bruising or bleeding Psychiatric: normal mood and affect, intact recent and remote memory FMR H&P: Results - Labs Result Diagrams: 03/04/19 04:55 03/04/19 04:55 Lab results: WBC 7.6 thou/uL (4.8-10.8) 03/02/19 13:07 Hgb 12.6 g/dL (12.0-16.0) 03/02/19 13:07 Hct 37.0 % (36.0-47.0) 03/02/19 13:07 MCV 100.0 fL (78.0-98.0) H 03/02/19 13:07 Plt Count 99 thou/uL (130-400) L 03/02/19 13:07 Neutrophils % 75.6 % (42.0-75.0) H 03/02/19 13:07 Sodium 128 mmol/L (136-145) L 03/02/19 14:13 Potassium 2.6 mmol/L (3.5-5.1) L* 03/02/19 14:13 Chloride 89 mmol/L (98-107) L 03/02/19 14:13 Carbon Dioxide 28 mmol/L (22-29) 03/02/19 14:13 BUN Less than 4 mg/dL (7.0-18.7) L 03/02/19 14:13 Creatinine 0.67 mg/dL (0.6-1.1) 03/02/19 14:13 Glucose 99 mg/dL (70-105) 03/02/19 14:13 Calcium 7.4 mg/dL (7.8-10.44) L 03/02/19 14:13 Total Bilirubin 6.0 mg/dL (0.2-1.2) H 03/02/19 14:13 AST 127 U/L (5-34) H 03/02/19 14:13 ALT 21 U/L (8-55) 03/02/19 14:13 Alkaline Phosphatase 177 U/L (40-110) H 03/02/19 14:13 Serum Total Protein 6.5 g/dL (6.0-8.3) 03/02/19 14:13 Albumin 2.5 g/dL (3.5-5.0) L 03/02/19 14:13 Urine Ketones Unable to Interpret mg/dL (Negative) 03/02/19 14:26 Urine Blood Trace (Negative) A 03/02/19 14:26 Urine Nitrite Unable to Interpret (Negative) 03/02/19 14:26 Ur Leukocyte Esterase Large (Negative) H 03/02/19 14:26 Urine RBC 0-3 HPF (0-3) 03/02/19 14:26 Urine WBC Greater Than 50 HPF (0-3) A 03/02/19 14:26 Ur Squamous Epith Cells Greater than 50 HPF (0-3) A 03/02/19 14:26 Urine Bacteria 1+ HPF (None Seen) A 03/02/19 14:26 FMR H&P: A/P - Problem List (1) Ascites Status: Acute Code(s): R18.8 - OTHER ASCITES (2) Hypokalemia Status: Acute Code(s): E87.6 - HYPOKALEMIA - Plan Patient is a 38 yo female who presents with abdominal pain is admitted for Hypokalemia: 1.Hypokalemia -admission K 2.6 -Replace K PO 40 BID wm, already given 40 meq x 1 in ED -Adjust Lasix dosing -Recheck BMP in AM 2.Ascites -2/2 cirrhosis -GI--Dr. Fu consulted for paracentesis from ER, appreciate recs -planned paracentesis tomorrow 3.Cirrhosis -Appears to be compensated at this time -Continue home meds 4. Hx of EtOH Abuse -for 25 years per [facility] clinic records 5. Hyponatremia -admission Na 128, appears chronic based on past admissions Diet: Low protein VTE: SCDs Code: Full PCP: Richard Admitted to obs on medical unit. Will replace K+, GI consulted for planned paracentesis tomorrow. Anticipate LOS <48 hrs. FMR H&P: Upper Level - Pertinent history 38 yo F here with hx of etoh cirrhosis with complaint of abdominal distension and pressure. She states that she has been getting paracentesis with Dr Fu about once per week, however was not able to get into the office today. She states for the past 2 days she has felt bloated and has not wanted to eat due to distension. She also notes that she cannot take a deep breath. She went to the ER where she was also found to have a K of 2.6. She has chronically low K, however it has not been this low in the past. She was given [address] the ED[address] Dr Fu was consulted from the ED, he plans to perform a paracentesis in the morning. PMHx Cirrhosis Surgical Hx - none Social Hx Hx of etoh abuse, no longer drinks. Denies smoking or drugs - Pertinent findings See [facility] internship note for full ROS, PE, vitals, and labs ROS General Denies fever or chills CV Denies CP, palpitation, diaphoresis, or radiation of pain Resp Denies SOB or cough GI Complains of abdominal bloating and aching. Denies sharp pain or n/v/d denies increased frequency or dysuria Neuro denies numbness or weakness PE General A&O x1, NAD HEENT NCAT CV RRR, no murmur Resp CTA, no respiratory distress Abd Moderate abdominal distension. No tenderness. No guarding. Positive fluid wave/shifting dullness. Extremities no edema, equal pedal pulses Neuro no focal deficits, CN II-XII intact - Plan Date/Time: 03/02/19 1600 I, Rafi Gordillo DO, have evaluated this patient and agree with findings/plan as outlined by [facility] internship resident. Pertinent changes/additions are listed here. 1.Hypokalemia -Replace K PO -Decrease Lasix -Recheck in am 2.Ascites -GI consulted for paracentesis from ER. 3.Cirrhosis -Appears to be compensated at this time. Continue home meds PPx SCD Diet Low protein Code Full Addendum - Attending - Attending Attestation Date/Time: 03/04/19 976 I personally evaluated the patient and discussed the management with Dr. Gordillo. I agree with the History, Examination, Assessment and Plan documented above with any addition or exceptions noted below.
[2019-03-02 16:42] LABS: INR-International Normal Ratio 2.1; Prothrombin Time 23.1 SEC (12.0-14.7)
[2019-03-02 16:43] LABS: PTT 43.6 SEC (22.9-36.1)
--- NOTE | 2019-03-02 16:45 | PDOC.BPN ---
- Brief Progress Note Date/Time: 03/02/19 0076 I personally evaluated the patient and discussed the management with Dr. Leach. I agree with the History, Examination, Assessment and Plan as discussed. Being admitted for hypokalemia treatment. Will consult Dr Fu for therapeutic paracentesis.
[2019-03-02] MEDS ORDERED: Ondansetron PF 4 MG/2 ML Vial IVP PRN (17:16)
[2019-03-02] MEDS ORDERED: Acetaminophen 325 MG TAB PO PRN (17:16)
[2019-03-02] MEDS ORDERED: Ondansetron ODT 4 MG TAB SL PRN (17:16)
[2019-03-02 17:20] VITALS: BMI 24.1
[2019-03-02] MEDS ORDERED: Senokot S 8.6-50 MG TAB PO PRN (18:49)
[2019-03-02] MEDS ORDERED: Calcium Carbonate 500 MG ChewTAB PO PRN (18:49)
[2019-03-02] MEDS ORDERED: Ibuprofen 600 MG TAB PO PRN (18:49)
[2019-03-02] MEDS ORDERED: Potassium Chloride 20 MEQ TAB PO SCH (19:00)
[2019-03-02] MEDS: Lactated Ringer's 1,000 ML IV SCH (19:47)
[2019-03-02] MEDS ORDERED: Magnesium 2 GM/50 ML 2 GM in Premix Bag 1 BAG IVPB SCH (21:30)
[2019-03-02] MEDS ORDERED: cefTRIAXone\\ROCEPHIN 2 GM in Sodium Chloride 0.9% 100 ML IVPB SCH (22:00)
--- NOTE | 2019-03-02 22:29 | CON ---
DATE OF CONSULTATION: 03/02/2019 CHIEF COMPLAINT: Abdominal pain. HISTORY OF PRESENT ILLNESS: Ms. Rosas is a 38-year-old woman, who was admitted to the hospital back in December with alcoholic hepatitis and decompensation of cirrhosis and new onset ascites. She was started on spironolactone and furosemide and low-salt diet. She has required paracentesis a few times since then. Her most recent paracentesis was on 02/21/2019. She had 3.8 L removed at that time. She has been followed in GI Clinic, but her abdominal pain has worsened over the last several days with sharp pain in the upper epigastric region and right lower quadrant and left lower quadrant associated with abdominal distention. She has had no nausea, vomiting, diarrhea, or constipation. She has had increased abdominal distention with this. PAST MEDICAL HISTORY: Alcoholic cirrhosis. PAST SURGICAL HISTORY: Breast augmentation. FAMILY HISTORY: Negative for GI malignancy and liver disease. SOCIAL HISTORY: She has had prior alcohol abuse. This states that she quit with the last hospitalization back on 01/22/2019. She has a past history of drug use as well. ALLERGIES: NO KNOWN DRUG ALLERGIES. MEDICATIONS: Prior to admission: 1. Spironolactone 200 mg daily. 2. Furosemide 40 mg daily. 3. Methocarbamol. REVIEW OF SYSTEMS: Negative x10 systems reviewed, except as stated in the history of present illness. PHYSICAL EXAMINATION: VITAL SIGNS: Temperature 99.8, pulse 123, oxygen saturation 93%, and blood pressure 117/72. GENERAL: She is in no acute distress. Alert and oriented x3. HEENT: Eyes have no scleral icterus. Oropharynx is clear without lesions. LUNGS: Clear to auscultation bilaterally in the upper lung pope. She does have some decreased breath sounds in the bases. HEART: Tachycardic. S1 and S2 without murmur. ABDOMEN: Distended with ascites. Her bowel sounds are present. She has mild tenderness to palpation. EXTREMITIES: No lower extremity edema. IMPRESSION: 1. Symptomatic ascites. This persists despite spironolactone and furosemide and a low-salt diet. We will continue to try to adjust and maximize her diuretics. This has been complicated by hypokalemia and hyponatremia. Her creatinine is normal at 0.67. 2. Decompensated cirrhosis of the liver. The hyponatremia is a negative prognostic sign. Her bilirubin is increased to 6, albumin is low at 2.5. Her INR is increased to 2.1. RECOMMENDATIONS: 1. Given the abdominal pain and tachycardia and worsening ascites, I will cover her with ceftriaxone. 2. Request paracentesis by Interventional Radiology tomorrow morning. 3. I will give a dose of vitamin K. If necessary, she can receive FFP tomorrow morning prior to the paracentesis if Interventional Radiology requires this. We will recheck her INR in the morning. 4. Continue spironolactone 200 mg daily and furosemide 40 mg daily. Continue to monitor her potassium. She should also replace magnesium IV. Her magnesium today was 1.1. Job ID: [id number]
[2019-03-03 05:48] LABS: #Basophils 0.1 thou/uL (0.0-0.2); #Eosinphils 0.1 thou/uL (0.0-0.7); #Lymphocytes 1.6 thou/uL (1.20-3.40); #Monocytes 1.1 thou/uL (0.11-0.59); #Neutrophils 4.9 thou/uL (1.40-6.50); %Basophils 0.7 % (0.0-1.0); %Eosinophils 1.6 % (0.0-10.0); %Lymphocytes 20.6 % (21.0-51.0); %Monocytes 14.2 % (0.0-10.0); %Neutrophils 62.9 % (42.0-75.0); Hemoglobin 11.1 g/dL (12.0-16.0); Mean Corpuscular HGB CONC 33.5 g/dL (32.0-36.0); Mean Corpuscular Hemoglobin 33.4 pg (27.0-31.0); Mean Corpuscular Volume 99.8 fL (78.0-98.0); Mean Platelet Volume 9.5 fL (7.4-10.4); Platelet Count 79 thou/uL (130-400); Red Blood Cell (RBC) Count 3.31 mill/uL (4.20-5.40); White Blood Cell (WBC) Count 7.8 thou/uL (4.8-10.8)
[2019-03-03 05:54] LABS: INR-International Normal Ratio 2.2
--- NOTE | 2019-03-03 05:58 | PDOC.FM ---
- Subjective Subjective: Patient states her abdominal pain is better at rest, but still severe whenever someone presses on her stomach. She otherwise slept well overnight and has no complaints. - Objective MAR Reviewed: Yes Vital Signs & Weight: Vital Signs (12 hours) Temp Pulse Resp BP Pulse Ox 03/03/19 02:11 98.6 F 121 H 18 119/72 92 L 03/02/19 23:18 99.1 F 118 H 03/02/19 19:18 99.8 F H 123 H 16 117/72 93 L 03/02/19 18:49 92 L Weight Weight 57.243 kg I&O: 03/01/19 03/02/19 03/03/19 06:59 06:59 06:59 Intake Total 568 Output Total 450 Balance 118 Result Diagrams: 03/03/19 05:41 03/03/19 05:41 Phys Exam - Physical Examination Constitutional: NAD HEENT: moist MMs, sclera anicteric Neck: no JVD, supple, full ROM Respiratory: no wheezing, no rhonchi, clear to auscultation bilateral Cardiovascular: RRR, no significant murmur Gastrointestinal: positive bowel sounds Abdomen distended with pain to light palpation throughout Musculoskeletal: no edema, pulses present Neurological: normal sensation, moves all 4 limbs Psychiatric: normal affect, A&O x 3 Skin: no rash, normal turgor Dx/Plan (1) Ascites Code(s): R18.8 - OTHER ASCITES Status: Acute (2) Hypokalemia Code(s): E87.6 - HYPOKALEMIA Status: Acute - Plan Plan: Patient is a 38 yo female who presents with abdominal pain is admitted for Hypokalemia: #Hypokalemia -admission K 2.6 > 3.3 -Replace K PO 40 BID wm, already given 40 meq x 1 in ED -Adjust Lasix dosing -Mag 1.1, replaced with 2 g Mag IV x 1 dose -Recheck BMP in AM #Ascites -2/2 cirrhosis, last paracentesis on 02/21/19 & had 3.8 L removed -GI--Dr. Fu consulted for paracentesis from ER, appreciate recs -planned paracentesis this morning by IR -concern for SBP due to abdominal pain and continued tachycardia, Dr. Fu ordered Rocephin for coverage #Cirrhosis -Appears to be compensated at this time -Continue home meds #Hx of EtOH Abuse -for 25 years per [facility] clinic records #Hyponatremia -admission Na 128, appears chronic based on past admissions Diet: Low protein VTE: SCDs Code: Full PCP: Richard Dispo: Admitted to obs on medical unit. Will replace K+, GI consulted for planned paracentesis today. Anticipate LOS <48 hrs. Addendum - Attending - Attending Attestation Date/Time: 03/03/1918 I personally evaluated the patient and discussed the management with Dr. Leach I agree with the History, Examination, Assessment and Plan documented above with any addition or exceptions noted below. For evaluation IR/GI for paracentesis today corrrecting potassium and SBE prophylaxis pending paracentesis.
[2019-03-03 06:11] LABS: ALT (SGPT) 16 U/L (8-55); AST (SGOT) 100 U/L (5-34); Albumin 2.3 g/dL (3.5-5.0); Alkaline Phosphatase 156 U/L (40-110); Anion Gap 12 mmol/L (10-20); BUN (Urea Nitrogen) Less than 4 mg/dL (7.0-18.7); Bilirubin, Total 4.6 mg/dL (0.2-1.2); Calc. Creatinine Clearance 104 mL/min (70-130); Calcium 7.1 mg/dL (7.8-10.44); Carbon Dioxide 26 mmol/L (22-29); Chloride 95 mmol/L (98-107); Estimated GFR-MDRD Greater than 90; Globulin 3.4 g/dL (2.4-3.5); Glucose 95 mg/dL (70-105); Potassium 3.3 mmol/L (3.5-5.1); Protein, Total 5.7 g/dL (6.0-8.3); Sodium 130 mmol/L (136-145)
[2019-03-03] MEDS: Potassium Chloride 20 MEQ TAB PO SCH ×2 (07:33→16:44)
[2019-03-03] MEDS: Lactated Ringer's 1,000 ML IV SCH (07:33)
[2019-03-03] MEDS ORDERED: diphenhydrAMINE 50 MG CAP PO PRN (07:56)
[2019-03-03] MEDS ORDERED: Spironolactone 100 MG TAB PO SCH ×2 (08:00→13:00)
[2019-03-03] MEDS ORDERED: Furosemide 20 MG TAB PO SCH (09:00)
[2019-03-03] MEDS ORDERED: Spironolactone 25 MG TAB PO SCH (09:00)
[2019-03-03] MEDS: Methocarbamol 500 MG TAB PO SCH (09:05)
[2019-03-03] MEDS: Furosemide 40 MG TAB PO SCH (09:06)
[2019-03-03] MEDS: Ondansetron ODT 4 MG TAB PO PRN (09:09)
--- NOTE | 2019-03-03 12:14 | ULT ---
US Paracentesis with Imaging History: Ascites Comparison: Ultrasound February 21, 2019 Findings: Ultrasound guided paracentesis was performed in the patient's room. Patient's left lower quadrant was prepped and draped in normal sterile fashion. Using ultrasound guid ance after adequate anesthesia a total of 1550 mL of ascites was removed. The patient tolerated the procedure well without complication. Impression: Technically successful ultrasound-guided paracentesis.
[2019-03-03 12:48] LABS: RBC Count-Automated (BF) 38 /cumm; WBC/Nucleated-Auto (BF) 200 uL
[2019-03-03 13:02] LABS: BF Color Yellow; Body Fluid Source Ascites Body Fluid; Clarity Clear (Clear); Tube # EDTA
--- NOTE | 2019-03-03 13:05 | PRG ---
DATE OF SERVICE: 03/03/2019 SUBJECTIVE: Ms. Rosas feels much better today after having paracentesis this morning. She had 1550 mL removed. OBJECTIVE: VITAL SIGNS: Temperature is 98.1, pulse 119, blood pressure 122/79. GENERAL: She is in no acute distress. Alert and oriented x3. No asterixis. LUNGS: Clear to auscultation bilaterally. Some decreased breath sounds in the right base. HEART: Tachycardic. S1 and S2. ABDOMEN: Soft and nontender. Still mildly distended. Bowel sounds are present. EXTREMITIES: No lower extremity edema. LABORATORY DATA: White blood cell count 7.8, hemoglobin 11.1, platelets 79,000. INR 2.2. Creatinine 0.65, bilirubin 4.6, AST 100, ALT 16, alkaline phosphatase 156, albumin 2.3. IMPRESSION: 1. Decompensated cirrhosis with her bilirubin slightly better today than yesterday. Her INR is increased. Mental status remains stable. 2. Symptomatic ascites. This was her primary reason for coming to the emergency room. She had a paracentesis today and feels much better. We will need to work on optimizing her diuretics. 3. Hypokalemia. RECOMMENDATIONS: 1. Maintain alcohol abstinence. 2. Spironolactone 200 mg daily. I will increase this dose. 3. Continue the furosemide 40 mg daily. We will await the cell count from the paracentesis today. She is being covered with ceftriaxone in the meantime. Job ID: [id number]
[2019-03-03] MEDS: Spironolactone 100 MG TAB PO SCH (13:07)
[2019-03-03 13:09] LABS: BF Segmented Neutrophils 4 %; Cell Count Non Hematic 80 %; Lymphocytes 16 %
[2019-03-03] MEDS ORDERED: FLU VACC QS2019-20(6MOS UP)/PF 60 MCG/0.5 ML SYRINGE IM ONE (18:30)
[2019-03-03] MEDS ORDERED: cefTRIAXone\\ROCEPHIN 2 GM in Sodium Chloride 0.9% 100 ML IM SCH (22:00)
[2019-03-03] MEDS ORDERED: CEFTRIAXONE ROCEPHIN IM SCH ×2 (23:00)
[2019-03-03] MEDS ORDERED: ADMIXTURE FEE IM SCH (23:00)
[2019-03-03] MEDS ORDERED: cefTRIAXone\\ROCEPHIN 2 GM VIAL IM SCH (23:00)
[2019-03-04] MEDS: Ondansetron ODT 4 MG TAB PO PRN (01:12)
--- NOTE | 2019-03-04 05:45 | PDOC.FM ---
- Subjective Subjective: Patient states that her abdominal feels better but still complains that too much fluid is still present. She says she feels like fluid is already coming back, pointing to her epigastric region. Patient was counseled to start setting up paracentesis appointments as an outpatient but states she has attempted this in the past and been denied for financial reasons. She says she typically uses the ER for paracentesis "when she needs it". - Objective MAR Reviewed: Yes Vital Signs & Weight: Vital Signs (12 hours) Temp Pulse Resp BP Pulse Ox 03/04/19 04:47 95 03/04/19 03:25 99.4 F 116 H 15 121/75 95 03/03/19 19:33 98.9 F 119 H 14 127/77 97 Weight Weight 56.109 kg I&O: 03/02/19 03/03/19 03/04/19 06:59 06:59 05:59 Intake Total 1549 1449 Output Total 750 Balance 799 1449 Result Diagrams: 03/04/19 04:55 03/04/19 04:55 Phys Exam - Physical Examination Constitutional: NAD HEENT: moist MMs, sclera anicteric Neck: supple, full ROM Respiratory: no wheezing, no rhonchi, clear to auscultation bilateral Cardiovascular: RRR, no significant murmur Gastrointestinal: soft, positive bowel sounds still distended but improved from previous exam, less TTP today grossly Musculoskeletal: no edema, pulses present Neurological: normal sensation, moves all 4 limbs Psychiatric: normal affect, A&O x 3 Skin: no rash, normal turgor Dx/Plan (1) Ascites Code(s): R18.8 - OTHER ASCITES Status: Acute (2) Hypokalemia Code(s): E87.6 - HYPOKALEMIA Status: Acute - Plan Plan: Patient is a 38 yo female who presents with abdominal pain is admitted for Hypokalemia: #Hypokalemia -admission K 2.6 > 3.3 > 4.0 -Replace K PO 40 BID wm, already given 40 meq x 1 in ED -Adjust Lasix dosing -Mag 1.1, replaced with 2 g Mag IV x 1 dose --> 1.9 -Recheck BMP in AM -will likely need K replacement as an outpatient given patient's continued use of Lasix #Ascites -concern for SBP -2/2 cirrhosis, last paracentesis on 02/21/19 & had 3.8 L removed -GI--Dr. Fu consulted from ER, appreciate recs -paracentesis on 03/03 by IR, removed 1.5 L fluid -concern for SBP due to abdominal pain and continued tachycardia, Dr. Fu ordered Rocephin for coverage -patient's IV went bad on 03/03, switched Rocephin to IM and discontinued IVFs, patient with good PO intake -Ascites fluid cx: preliminary results show no organisms, WBC 200, RBC 38, 4% Neutrophils, 15% Lymphocytes -Consult Case Management for assistance with outpatient paracentesis appointments #Cirrhosis -Appears to be compensated at this time -Continue home meds #Hx of EtOH Abuse -for 25 years per [facility] clinic records #Hyponatremia -admission Na 128, appears chronic based on past admissions Diet: Low protein VTE: SCDs Code: Full PCP: Richard Dispo: Admitted to obs on medical unit. Will replace K+, GI consulted appreciate recs. Anticipate discharge in <48 hrs. Addendum - Attending - Attending Attestation Date/Time: 03/04/19 4314 I personally evaluated the patient and discussed the management with Dr. Leach I agree with the History, Examination, Assessment and Plan documented above with any addition or exceptions noted below.
[2019-03-04 06:03] LABS: Band 1 % (5-11); Eosinophils 1 % (0-10); Hemoglobin 10.7 g/dL (12.0-16.0); Hypochromia SLIGHT = 6-15 cells (100X) (0-5/hpf); Lymphocytes 14 % (21-51); MDiff Complete? YES; Macrocytosis SLIGHT = 6-15 cells (100X) (0-5/hpf); Mean Corpuscular HGB CONC 33.3 g/dL (32.0-36.0); Mean Corpuscular Hemoglobin 33.5 pg (27.0-31.0); Monocytes 2 % (0-10); Neutrophil 82 % (42-75); Platelet Count 83 thou/uL (130-400); Platelet Morphology Comment Appears Decreased; RBC Distribution Width 12.2 % (11.5-14.5); Red Blood Cell (RBC) Count 3.19 mill/uL (4.20-5.40)
[2019-03-04 06:11] LABS: ALT (SGPT) 15 U/L (8-55); AST (SGOT) 97 U/L (5-34); Albumin 2.3 g/dL (3.5-5.0); Alkaline Phosphatase 169 U/L (40-110); Anion Gap 12 mmol/L (10-20); BUN (Urea Nitrogen) Less than 4 mg/dL (7.0-18.7); Bilirubin, Total 3.6 mg/dL (0.2-1.2); Calc. Creatinine Clearance 109 mL/min (70-130); Calcium 7.3 mg/dL (7.8-10.44); Carbon Dioxide 23 mmol/L (22-29); Chloride 99 mmol/L (98-107); Estimated GFR-MDRD Greater than 90; Globulin 3.6 g/dL (2.4-3.5); Glucose 104 mg/dL (70-105); Protein, Total 5.9 g/dL (6.0-8.3); Sodium 130 mmol/L (136-145)
[2019-03-04 07:32] VITALS: BP 123/79; TEMP 99.5
[2019-03-04] MEDS: Potassium Chloride 20 MEQ TAB PO SCH (08:17)
[2019-03-04] MEDS: Furosemide 40 MG TAB PO SCH (08:18)
[2019-03-04] MEDS: Methocarbamol 500 MG TAB PO SCH (08:18)
[2019-03-04] MEDS: Spironolactone 100 MG TAB PO SCH (08:18)
--- NOTE | 2019-03-05 12:18 | DIS ---
DATE OF ADMISSION: 03/02/2019 DATE OF DISCHARGE: 03/04/2019 RESIDENT: Tasha Leach MD. ADMITTING ATTENDING: Gilmar Russ MD. DISCHARGE ATTENDING: Austyn Shah MD. CONSULTATIONS: 1. GI, Dr. Too Fu. 2. Case management. PROCEDURES: Abdominal paracentesis on March 03, 2019, by interventional Radiology: Patient had approximately 1550 mL of ascites removed. The patient tolerated procedure well. PRIMARY DIAGNOSES: 1. Hypokalemia. 2. Ascites secondary to cirrhosis. SECONDARY DIAGNOSES: 1. Cirrhosis of liver. 2. History of alcohol abuse. 3. Chronic hyponatremia. DISCHARGE MEDICATIONS: 1. Benadryl 50 mg p.o. q.8 hours p.r.n. 2. Robaxin (methocarbamol) 500 mg p.o. daily. 3. Furosemide 40 mg p.o. daily. 4. Potassium chloride 20 mEq p.o. daily. 5. Spironolactone 200 mg p.o. q.a.m. with meal. DISCONTINUED MEDICATIONS: 1. Spironolactone 100 mg p.o. daily. 2. Ondansetron 4 mg p.o. q.6 hours p.r.n. 3. Lactated Ringer's IV at 100 mL/hour. HISTORY OF PRESENT ILLNESS/HOSPITAL COURSE: The patient is a 38-year-old female who presents with a complaint of dull achy abdominal pain all over, worse across her lower abdomen. The patient normally has paracentesis every 3-4 days, but has not been able to make a paracentesis appointment. Her last paracentesis was 9 days ago during which she had approximately 3.8 liters removed. She says her stomach began to hurt about 3 days ago and she has not eaten anything and has drank very little liquids since this time. The patient denies any fever or pain out of proportion during this time period. She has had a history of spontaneous bacterial peritonitis, but states that this pain is different from that experience. Incidentally, the patient was found to have a potassium of 2.6 on her emergency room labs. In the emergency department at [place], she was given Zofran, potassium 40 mEq, morphine 2 mg and Phenergan. She was admitted to observation on the telemetry floor with a planned paracentesis for the following morning. GI, Dr. Fu, was consulted from the ER and stated to plan a paracentesis through Interventional Radiology. Upon admission to the telemetry unit, the patient's potassium continued to be replaced with 40 mEq b.i.d. with meals. Additionally, Dr. Fu recommended adjusting her spironolactone dose from 100 up to 200 mg daily. The patient had a hyponatremia with sodium of 128, but this appears chronic based off past hospital records. Once Dr. Fu evaluated the patient on the floor, he became concerned that the patient might be at risk for SBP due to abdominal pain and continued tachycardia in the 110s. He ordered Rocephin for antibiotic coverage, which was continued for 2 doses. The patient was also found to have a magnesium of 1.1, which was replaced with 2 g magnesium IV x1 dose. On the morning of March 03, 2019 , the patient had a paracentesis performed by IR during which they removed approximately 1.5 liters of fluid. The patient tolerated the procedure well. Cell counts from the ascites fluid showed WBCs 200, RBC 38, 4% neutrophils, 16% lymphocytes, all of these values fall within normal range. Ascites culture about 24 hours showed no growth and no organisms seen. On the morning of March 04, 2019, the patient was clinically doing better. She stated she still had some abdominal pain in her epigastric area. However, her liver is enlarged and is palpable in that same area. The patient voiced at this time that she feels like she needs to have more regular paracentesis. She was counseled that she needs to start setting up paracentesis appointments as an outpatient. The patient states she has attempted this in the past, but has been having difficulty due to financial reasons. Case management was consulted to assist the patient in trying to set up paracentesis appointments for her. The patient states that she will continue to return to the emergency room for paracentesis "whenever she feels like she needs it." At this stage, the patient was deemed stable for discharge back to home. Her potassium had improved to 4.0 and her magnesium had improved to 1.9. The patient will need close followup with her PCP at [facility] in the following days. DISPOSITION: Stable. DISCHARGE INSTRUCTIONS: 1. Location: Home. 2. Diet, low protein. 3. Activity: As tolerated. 4. Follow up with Dr. Jha at [facility], PCP in 3 to 5 days for hospital followup. 5. Follow up with FRANCESCA Vasquez in 1 to 2 weeks. Job ID: [id number] [facility]
== END 2019-03-04 11:08 | disposition home or self-care (01) ==
LOC: ERS 12:32 → 2SW 15:45
PROVIDERS: ADMIT Family Medicine; ATTEND Family Medicine
PROC: 0W9G3ZZ Drainage of Peritoneal Cavity, Percutaneous Approach (ICD-10-PCS; principal; 2019-03-03)
PROC: BW40ZZZ Ultrasonography of Abdomen (ICD-10-PCS; 2019-03-03)
DX: K70.31 Alcoholic cirrhosis of liver with ascites (principal); E87.6 Hypokalemia; E87.1 Hypo-osmolality and hyponatremia; I10 Essential (primary) hypertension; Z79.899 Other long term (current) drug therapy
CPT/HCPCS: 36415; 49083; 80053; 81003; 81015; 83735; 85025; 85060; 85610; 85730; 87070; 87205; 89051; 90471; 90732; 96361; 96365; 96372; 96375; G0009; G0378; J0696; J2270; J2550; J3475; J3490; Q0162

== ENCOUNTER 2019-03-24 13:53 | Emergency (ER) | payer MEDICAID ==
[2019-03-24 14:54] LABS: #Eosinphils 0.1 thou/uL (0.0-0.7); #Lymphocytes 1.2 thou/uL (1.20-3.40); #Monocytes 1.1 thou/uL (0.11-0.59); #Neutrophils 8.2 thou/uL (1.40-6.50); %Basophils 0.4 % (0.0-1.0); %Eosinophils 0.5 % (0.0-10.0); %Lymphocytes 11.1 % (21.0-51.0); %Monocytes 10.4 % (0.0-10.0); %Neutrophils 77.6 % (42.0-75.0); Hemoglobin 11.6 g/dL (12.0-16.0); Mean Corpuscular HGB CONC 33.2 g/dL (32.0-36.0); Mean Corpuscular Hemoglobin 34.9 pg (27.0-31.0); Platelet Count 139 thou/uL (130-400); RBC Distribution Width 14.6 % (11.5-14.5); Red Blood Cell (RBC) Count 3.33 mill/uL (4.20-5.40); White Blood Cell (WBC) Count 10.6 thou/uL (4.8-10.8)
[2019-03-24 15:13] LABS: ALT (SGPT) 18 U/L (8-55); AST (SGOT) 86 U/L (5-34); Albumin 2.2 g/dL (3.5-5.0); Alkaline Phosphatase 140 U/L (40-110); Anion Gap 18 mmol/L (10-20); BUN (Urea Nitrogen) 11 mg/dL (7.0-18.7); Calc. Creatinine Clearance 0 mL/min (70-130); Calcium 8.3 mg/dL (7.8-10.44); Carbon Dioxide 22 mmol/L (22-29); Chloride 93 mmol/L (98-107); Estimated GFR-MDRD 56; Globulin 4.8 g/dL (2.4-3.5); Glucose 76 mg/dL (70-105); Lipase 19 U/L (8-78); Potassium 5.1 mmol/L (3.5-5.1); Sodium 128 mmol/L (136-145)
[2019-03-24 15:17] LABS: MDiff Complete? YES; Macrocytosis SLIGHT = 6-15 cells (100X) (0-5/hpf); Platelet Morphology Comment Appears Adequate; Polychromasia SLIGHT = 2-3 cells (100X) (0-2/hpf); Reflex for Review?? NO; Target Cells SLIGHT = 2-5 cells (100X) (0-1/hpf); Tear Drops MODERATE= 6-15 cells (100X) (0-1/hpf)
[2019-03-24] MEDS ORDERED: Fentanyl 100 MCG/2 ML VIAL ONE ×2 (15:27→17:47)
[2019-03-24] MEDS ORDERED: Albumin 25% 25 GM/100 ML BOT IVPB SCH (15:30)
[2019-03-24] MEDS ORDERED: Ondansetron PF 4 MG/2 ML Vial ONE (16:08)
[2019-03-24 18:09] LABS: Fluid, Glucose 91 mg/dL (Not Available); Fluid, Protein Less than 1.0 g/dL (Not Available); RBC Count-Automated (BF) 95 /cumm; WBC/Nucleated-Auto (BF) 67 uL
[2019-03-24 18:22] LABS: RBC Count-Automated (BF) 76 /cumm; WBC/Nucleated-Auto (BF) 152 uL
[2019-03-24 18:45] LABS: BF Color Yellow; Body Fluid Source Paracentesis Fluid; Clarity Hazy (Clear); Tube # 1
[2019-03-24 18:55] LABS: BF Segmented Neutrophils 3 %; Cell Count Non Hematic 51 %; Lymphocytes 46 %
[2019-03-24 18:58] LABS: BF Color Yellow; Body Fluid Source Paracentesis Fluid; Clarity Hazy (Clear); Tube # 4
[2019-03-24 19:04] LABS: BF Segmented Neutrophils 2 %; Cell Count Non Hematic 49 %; Lymphocytes 49 %
== END 2019-03-24 19:11 | disposition home or self-care (01) ==
LOC: ERS 13:53
DX: R18.8 Other ascites (principal); F41.9 Anxiety disorder, unspecified; F32.9 Major depressive disorder, single episode, unspecified; I10 Essential (primary) hypertension; Z79.899 Other long term (current) drug therapy
CPT/HCPCS: 49083; 80053; 82945; 83690; 84157; 85025; 85060; 87070; 87205; 89051; 96365; 96366; 96375; 96376; J2405; J3010; P9047